=== PATIENT | female | born 1955 | race Caucasian/White ===

== ENCOUNTER 2019-04-28 15:41 | Outpatient (CLI) | payer OTHER, SELFPAY ==
--- NOTE | ~2019-04-28 | MM_ITS ---
EXAMINATION: MM screening farida BI w rhonda HISTORY: Screening mammogram TECHNIQUE: Craniocaudal and mediolateral oblique 3-D tomosynthesis images were obtained and synthetic 2-D images were generated. CAD analysis was submitted and interpreted. COMPARISON: 04/25/2018, 04/17/2017, 10/31/2015 bilateral digital screening mammogram examinations BREAST PARENCHYMAL COMPOSITION: The breasts are almost entirely fatty. FINDINGS: Small stable bilateral intramammary lymph nodes are again noted. There is no evidence of handy spicious mass, calcification, or architectural distortion to suggest malignancy in either breast. The re has been no suspicious interval change. IMPRESSION: 1. No mammographic evidence of malignancy. 2. Recommend routine screening mammography in one year. BI-RADS Category 2: Benign finding(s). Reviewed, dictated and finalized at location A. UCT TECHNICIAN
== END 2019-04-28 15:42 | disposition home or self-care (01) ==
LOC: ANHIMG 15:43
PROVIDERS: PCP Family Medicine Adolescent Medicine; Visit Provider Family Medicine Adolescent Medicine
DX: Z12.31 Encounter for screening mammogram for malignant neoplasm of breast (principal)
CPT/HCPCS: 77063; 77067

== ENCOUNTER 2019-05-01 08:33 | Emergency (ER) | payer OTHER, SELFPAY ==
--- NOTE | ~2019-05-01 | XR_ITS ---
EXAMINATION: XR chest 2V DATE: 05/01/2019 09:04 INDICATION: Left upper chest pain. Dyspnea with exertion. TECHNIQUE: PA and lateral views of the chest were obtained. COMPARISON: Chest radiograph dated 11/11/16 FINDINGS: The lungs are now clear with no focal airspace opacities, pulmonary edema, pleural effusion or pneumo thorax. The cardiomediastinal silhouette is normal. Mild thoracolumbar levocurvature with mild to mod erate spondylosis. IMPRESSION: 1. No acute cardiopulmonary disease. Reviewed, dictated and finalized at location A. RVISOR LANDSCAPE
[2019-05-01 08:36] VITALS: BP 167/90; PULSE 90; RESP 17; TEMP 36.6; O2SAT 99
--- NOTE | 2019-05-01 08:41 | ECG_ITS ---
Measurements Intervals Gardner Rate: 66 P: 48 MT: 179 QRS: -6 QRSD: 104 T: 27 QT: 415 QTc: 435 Interpretive Statements SINUS RHYTHM BASELINE ARTIFACT- I, III, AVR, AVL, AVF NORMAL ECG Electronically Signed On 05-01-2019 10:14:08 ELECTRONIC SCIENCE TEACHER by Joe Roberto D.O.
[2019-05-01] MEDS: ASPIRIN 81 MG CHEWABLE TABLET 324 MG PO (08:47)
[2019-05-01 08:52] VITALS: PULSE 82
[2019-05-01 08:52] LABS: Basophils Percent Auto 0.8 % (0.2-1.2); Eosinophils Absolute Auto 0.1 K/mm3 (0-0.3); Eosinophils Percent Auto 1.9 % (0-4.4); Hemoglobin 14.4 g/dL (12.0-15.0); Immature Granulocyte Absolute 0.02 K/mm3 (0.00-0.031); Immature Granulocyte Percent A 0.4 % (0-0.5); Lymphocytes Absolute Auto 1.77 K/mm3 (0.9-3.2); Lymphocytes Percent Auto 33.5 % (18.3-44.2); Mean Corpuscular Hemoglobin 27.6 pg (26-34); Mean Corpuscular Volume 86.2 fl (80-100); Mean Platelet Volume 9.8 fl (7.4-10.4); Monocytes Absolute Auto 0.4 K/mm3 (0.1-0.6); Monocytes Percent Auto 7.6 % (2.6-8.5); Neutrophils Percent Auto 55.8 % (45.5-73.1); Platelet Count Result 170 k/mm3 (150-375); Red Blood Count 5.22 M/mm3 (4.2-5.4); Red Cell Distribution Width 13.3 % (11.5-14.5); White Blood Count 5.3 K/mm3 (4.5-10.0)
[2019-05-01 08:53] VITALS: BP 156/67; PULSE 80; RESP 18; O2SAT 98
[2019-05-01 09:01] LABS: Blood Urea Nitrogen 15 mg/dL (7-17); Carbon Dioxide 22 mmol/L (22-30); Chloride 102 mmol/L (98-107); Estimated CRCL calculation 107 ml/min; Estimated Glomerular Filt Rate > 60; Glucose 336 mg/dL (65-105); Potassium 4.3 mmol/L (3.4-5.0); Sodium 138 mmol/L (137-145)
--- NOTE | 2019-05-01 09:12 | ED.CHESTPAIN ---
HPI - Chest Pain General Chief Complaint: Chest Pain Stated Complaint: CP Time Seen by Provider: 05/01/19 08:34 Source: patient and RN notes reviewed Mode of arrival: ambulatory Limitations: no limitations History of Present Illness HPI narrative: Pt is a 64 y/o female presenting to the ED c/o CP. Pt reports she started experiencing lt sided CP for a few weeks described as pressure. Pt also reports SOB with exertion, lt breast pain, and lt thigh pain described as cramping, but denies cough, congestion, or fever. Pt states she has made an appointment with her physician about her CP tomorrow but decided to come in after experiencing such SOB with exertion after taking a shower earlier today. Pt states she has a Hx of uncontrolled DM along with peripheral neuropathy that usually causes pain on her RLE. Pt states she is regularly taking Lisinopril and is also taking Estradiol but has recently cut back on it due to concern for breast cancer. Pertinent past history: other (DM; Peripheral neuropathy) Pain location: left chest Quality: other (Pressure) Associated symptoms: other (SOB with exertion; lt breast pain; lt thigh pain) Related Data Home Medications Medication Instructions Recorded Confirmed cetirizine mg 05/01/19 diclofenac sodium PO 05/01/19 estradiol mg 05/01/19 gabapentin 05/01/19 glimepiride mg 05/01/19 lisinopril 05/01/19 simvastatin mg 05/01/19 Allergies Allergy/AdvReac Type Severity Reaction Status Date / Time Penicillins Allergy Unknown Unknown Verified 05/01/19 08:48 Review of Systems Review of Systems: All systems reviewed & are unremarkable except as noted in HPI and below Constitutional: Constitutional: Denies fever(s) ENT: Denies nasal congestion Cardiovascular: Cardiovascular: Reports chest pain (Lt sided) Respiratory: Respiratory: Denies cough and Reports dyspnea on exertion Musculoskeletal: Musculoskeletal: Reports other (Lt thigh pain) Integumentary/Breasts: Skin/Breast: Reports breast pain (Lt) [facility] Past Medical History Medical History Asthma Diabetes mellitus Type II History of renal dialysis HTN (hypertension) IBS (irritable bowel syndrome) Kidney stone Pancreatitis Peripheral neuropathy UTI (urinary tract infection) Surgical History Surgical History H/O tubal ligation H/O: hysterectomy History of genitourinary surgery Bladder surgery History of musculoskeletal system surgery Rt heel surgery Family History Family History Mother Family history of malignant neoplasm Sibling Family history of malignant neoplasm Father Family history of diabetes mellitus in first degree relative Family history of heart disease in male family member before age 55 Social History Social History Smoking status: Never smoker Alcohol intake: current Exam Const: General: healthy appearing, no acute distress and alert Nutritional Appearance: obese HENMT: Mouth: Yes lip normal Eyes: Conjunctivae: conjunctivae normal Resp: Effort & Inspection: normal respiratory effort Auscultation: clear to auscultation bilaterally Cardio: Rate: regular rate Rhythm: regular rhythm Back/Spine/Pelvis: Other: Full ROM Skin: General skin exam: normal color Other: Warm; Dry Neuro: General: patient oriented x3 Speech: normal speech Extrem: General: edema (Trace bilateral ankle) Psych: Mental Status: mental status grossly normal Affect: normal affect Course Vital Signs Vital signs: Vital Signs Temperature 36.6 C 05/01/19 08:36 Pulse Rate 90 05/01/19 08:36 Respiratory Rate 17 05/01/19 08:36 Blood Pressure 167/90 H 05/01/19 08:36 Pulse Oximetry 99 05/01/19 08:36 Temperature 36.6 C 05/01/19 08:36 Pulse Rate 58 L 05/01/19 11:44 Respiratory Rate 12 05/01/19 11:44 Blood Press
[2019-05-01 09:13] LABS: Troponin I < 0.012 ng/mL (0.000-0.034)
[2019-05-01] MEDS: SODIUM CHLORIDE 0.9% IV 1,000 ML 999 ML IV CONT (09:30)
[2019-05-01 09:52] LABS: Partial Thromboplastin Time 23.7 SECONDS (22.3-36.8)
[2019-05-01 09:59] VITALS: BP 134/71; PULSE 67; RESP 14; O2SAT 98
--- NOTE | 2019-05-01 10:17 | ECG_ITS ---
Measurements Intervals Sherrill Rate: 79 P: 47 HI: 154 QRS: 30 QRSD: 113 T: 26 QT: 393 QTc: 451 Interpretive Statements SINUS RHYTHM INTRAVENTRICULAR CONDUCTION DELAY BORDERLINE ST-T WAVE ABNORMALITY- INFERIOR LEADS BASELINE ARTIFACT- I, II, III, AVR, AVL, V1-V2 BORDERLINE ECG Electronically Signed On 05-01-2019 15:18:07 WATERSHED PROGRAM MANAGER by Joe Roberto D.O.
[2019-05-01 10:18] VITALS: BP 152/62; PULSE 68; RESP 14; O2SAT 99
[2019-05-01 11:44] VITALS: BP 152/62; PULSE 58; RESP 12; O2SAT 100
== END 2019-05-01 11:45 | disposition home or self-care (01) ==
PROVIDERS: Emergency Provider Emergency Medicine; PCP Family Medicine Adolescent Medicine
DX: E11.65 Type 2 diabetes mellitus with hyperglycemia (principal); R07.9 Chest pain, unspecified; J45.909 Unspecified asthma, uncomplicated; I10 Essential (primary) hypertension; K58.9 Irritable bowel syndrome, unspecified; Z87.442 Personal history of urinary calculi; Z87.440 Personal history of urinary (tract) infections; E11.42 Type 2 diabetes mellitus with diabetic polyneuropathy; Z79.84 Long term (current) use of oral hypoglycemic drugs; I45.9 Conduction disorder, unspecified; R94.31 Abnormal electrocardiogram [ECG] [EKG]
CPT/HCPCS: 36415; 71046; 80048; 84484; 85025; 85610; 85730; 93005; 96360; 99284; A9270; J7030

== ENCOUNTER 2019-05-07 11:15 | Emergency (ER) | payer OTHER, SELFPAY ==
--- NOTE | ~2019-05-07 | CT_ITS ---
EXAMINATION: CT abdomen pelvis wo con EXAM DATE: 05/07/2019 12:31 INDICATION: Left flank pain. History of KS and pancreatitis. Nausea. TECHNIQUE: Spiral CT of the abdomen and pelvis was performed without contrast. Axial, coronal and s agittal images were reviewed. The dose-length product (DLP) for this examination was 1564.54 mGy-cm. The exposure was tailored according to patient size (auto mA exposure control), and iterative recon struction (ASIR) was used as additional dose reduction technique. There is no prior study for compar taya. FINDINGS: The liver, spleen, adrenal glands and pancreas are unremarkable. Gallbladder is unremarkab le. No biliary obstruction. There is a left renal pelvic stone measuring 1.4 cm, no hydronephrosis but moderate left perinephric fat stranding. There is additional 3 mm right superior calyceal stone. Punctate right nephrolithiasis. The uterus is not identified and has likely been surgically resected . The bladder is unremarkable. There is no retroperitoneal or pelvic lymphadenopathy. There is mi ld scattered arteriosclerotic disease. The appendix is normal. The stomach and small bowel are unremarkable. There is expected amount of c olonic stool. No free intraperitoneal gas. The heart is normal in size. There are no pericardial or pleural effusions. The lung bases are unremarkable. There are no osteoblastic or osteolytic les ions identified. Old right lower rib fractures laterally. IMPRESSION: 1. Left renal pelvic 14 mm stone with moderate perinephric inflammation. No hydronephrosis at presen t. 2. Small left, punctate right nephrolithiasis. Reviewed, dictated and finalized at location A. SSMENT EXPERT IMPRESSION: 1. Left renal pelvic 14 mm stone with moderate perinephric inflammation. No hy dronephrosis at present. 2. Small left, punctate right nephrolithiasis.
[2019-05-07 11:43] VITALS: BP 167/79; PULSE 94; RESP 16; TEMP 37; O2SAT 97
--- NOTE | 2019-05-07 11:50 | ED.ABDPAIN ---
HPI - Abdominal Pain General Chief Complaint: Abdominal Pain Stated Complaint: kidney stones or pancreatitis Time Seen by Provider: 05/07/19 11:50 Source: patient and RN notes reviewed Mode of arrival: ambulatory Limitations: no limitations History of Present Illness HPI narrative: A 64 y/o female presents to the ED with intermittent LLQ ABD pain for the past 12 hours. She states that she woke up with LLQ ABD pain that radiates into her lt flank and lower back at 12 AM this morning. She reports associated N/V. She notes that she took 2 tramadol at 4 AM which helped to alleviate her pain. She also notes that she called her PCP's office who told her to come to the ED to get a CT to make sure that it isn't her pancreatitis flaring up again. She states that she also currently has lt kidney stones. She denies any diarrhea, fevers, chills, dysuria, hematuria, or urinary frequency. MD elicited complaint: abdominal pain Pertinent past history: diverticulitis and kidney stones Onset (ago): hour(s) (12) Pain Consistency: intermittent Location: LLQ Radiation: L flank and back (lower) Relieving factors: medication (Tramadol) Associated symptoms: nausea and vomiting Related Data Home Medications Medication Instructions Recorded Confirmed cetirizine mg 05/01/19 diclofenac sodium PO 05/01/19 estradiol mg 05/01/19 gabapentin 05/01/19 glimepiride mg 05/01/19 lisinopril 05/01/19 simvastatin mg 05/01/19 insulin glargine [Basaglar KwikPen 10 unit SUBCUT DAILY 05/07/19 05/07/19 U-100 Insulin] Allergies Allergy/AdvReac Type Severity Reaction Status Date / Time Penicillins Allergy Unknown Unknown Verified 05/07/19 11:45 Review of Systems Review of Systems: All systems reviewed & are unremarkable except as noted in HPI and below Constitutional: Constitutional: Denies chills and Denies fever(s) Gastrointestinal: Gastrointestinal: Reports abdominal pain (LLQ), Denies diarrhea, Reports nausea and Reports vomiting Genitourinary: Genitourinary: Denies hematuria, Denies nocturia, Denies dysuria and Reports flank pain (lt radiated from ABD pain) Musculoskeletal: Musculoskeletal: Reports back pain (lower - radiated from ABD pain) [facility] Past Medical History Medical History Asthma Diabetes mellitus Type II Diverticulitis History of renal dialysis HTN (hypertension) Hx of rotator cuff tear AMOS. IBS (irritable bowel syndrome) Kidney stone OA (osteoarthritis) Pancreatitis Peripheral neuropathy UTI (urinary tract infection) Surgical History Surgical History H/O tubal ligation H/O: hysterectomy History of bladder suspension procedure History of cystoscopy History of genitourinary surgery Bladder surgery History of lithotripsy History of musculoskeletal system surgery Rt heel surgery History of tonsillectomy Hx of rotator cuff surgery AMOS. S/P ureteral stent placement Family History Family History Mother Family history of malignant neoplasm Sibling Family history of malignant neoplasm Father Family history of diabetes mellitus in first degree relative Family history of heart disease in male family member before age 55 Social History Social History Smoking status: Never smoker Alcohol intake: current Exam Const: General: cooperative, no acute distress and alert Nutritional Appearance: obese Orientation/consciousness: patient oriented x3 Limitations: no limitations HENMT: Mouth: Yes lip normal and Yes moist mucous membranes Resp: Effort & Inspection: normal respiratory effort Auscultation: clear to auscultation bilaterally Cardio: Rate: regular rate Rhythm: regular rhythm GI: GI Palp: Yes Soft to palpation and Yes Tenderness to palpation present (GI) (Epigastric and LUQ
[2019-05-07 12:11] LABS: Basophils Percent Auto 0.2 % (0.2-1.2); Eosinophils Percent Auto 0.1 % (0-4.4); Hemoglobin 13.9 g/dL (12.0-15.0); Immature Granulocyte Absolute 0.02 K/mm3 (0.00-0.031); Immature Granulocyte Percent A 0.2 % (0-0.5); Lymphocytes Absolute Auto 1.45 K/mm3 (0.9-3.2); Lymphocytes Percent Auto 17.9 % (18.3-44.2); Mean Corpuscular HGB Conc 32.3 g/dl (32-36); Mean Corpuscular Hemoglobin 27.8 pg (26-34); Mean Platelet Volume 9.4 fl (7.4-10.4); Monocytes Absolute Auto 0.6 K/mm3 (0.1-0.6); Monocytes Percent Auto 7.5 % (2.6-8.5); Neutrophils Percent Auto 74.1 % (45.5-73.1); Platelet Count Result 161 k/mm3 (150-375); Red Cell Distribution Width 13.2 % (11.5-14.5); White Blood Count 8.1 K/mm3 (4.5-10.0)
[2019-05-07] MEDS: ONDANSETRON INJ 4 MG/2 ML VIAL IV PUSH (12:11)
[2019-05-07 12:25] LABS: Alanine Aminotransferase 24 U/L (4-35); Albumin Level 4.2 g/dL (3.5-5.1); Alkaline Phosphatase 80 U/L (38-126); Aspartate Amino Transferase 24 U/L (14-36); Bilirubin,Total 0.5 mg/dL (0.2-1.3); Blood Urea Nitrogen 22 mg/dL (7-17); Calcium 9.1 mg/dL (8.4-10.2); Carbon Dioxide 28 mmol/L (22-30); Chloride 101 mmol/L (98-107); Estimated CRCL calculation 106 ml/min; Estimated Glomerular Filt Rate > 60; Glucose 255 mg/dL (65-105); Lipase 326 U/L (23-300); Potassium 4.3 mmol/L (3.4-5.0); Sodium 138 mmol/L (137-145)
[2019-05-07 12:36] LABS: Add Urine Microscopic? YES; Appearance Urine Cloudy (Clear); Bacteria Urine 1+ /hpf; Bilirubin Urine Negative (Negative); Blood Urine 2+ (Negative); Color Urine Yellow (Yellow); Glucose Urine UA 3+ mg/dL (Negative); Ketones Urine Negative (Negative); Leukocyte Esterase Ur 3+ LEU/UL (Negative); Mucus Urine Rare /lpf; Nitrate Urine Negative (Negative); Protein Urine 2+ mg/dL (Negative); RBC Urine 21-50 /hpf (0-2); Specific Grav Ur 1.013 (1.001-1.035); Squamous Epithelial Cell Urine Rare /hpf (Few); Urobilinogen Urine Negative mg/dL (<2.0); WBC Urine >75 /hpf
--- NOTE | 2019-05-12 07:52 | PC.NURSE ---
LATE ENTRY This note is being entered to document information to the patient's record. The following information was omitted on [05/07/19]. rocephin infused at 1456
== END 2019-05-07 12:26 | disposition home or self-care (01) ==
PROVIDERS: Emergency Provider Emergency Medicine; PCP Family Medicine Adolescent Medicine
DX: N20.0 Calculus of kidney (principal); N10 Acute pyelonephritis; Z87.442 Personal history of urinary calculi; E11.42 Type 2 diabetes mellitus with diabetic polyneuropathy; I10 Essential (primary) hypertension; K58.9 Irritable bowel syndrome, unspecified; M19.90 Unspecified osteoarthritis, unspecified site; J45.909 Unspecified asthma, uncomplicated; Z79.4 Long term (current) use of insulin
CPT/HCPCS: 36415; 74176; 80053; 81001; 83690; 85025; 87077; 87086; 87088; 87186; 96365; 96375; 99284; J0696; J2405

== ENCOUNTER 2019-05-14 15:36 | Outpatient (CLI) | payer OTHER, SELFPAY ==
--- NOTE | ~2019-05-14 | XR_ITS ---
EXAMINATION: XR abdomen/kub 1V EXAM DATE: 05/14/2019 16:00 INDICATION: Kidney stone. Left flank pain. TECHNIQUE: Frontal projection of the upper abdomen, frontal projection lower abdomen/pelvis for inter pretation. Comparison is made to prior examination from 02/19/2019. FINDINGS: There is stool overlying both renal contours. Probable identification of large left renal pelvic stone. No small bowel obstruction. There is no organomegaly. There are mild bony degenerativ e changes. IMPRESSION: Left nephrolithiasis. Reviewed, dictated and finalized at location B. ER LABOR IMPRESSION: Left nephrolithiasis.
== END 2019-05-14 15:37 | disposition home or self-care (01) ==
PROVIDERS: PCP Family Medicine Adolescent Medicine; Visit Provider Urology
DX: N20.0 Calculus of kidney (principal)
CPT/HCPCS: 74018

== ENCOUNTER 2019-05-19 11:08 | Outpatient (CLI) | payer OTHER, SELFPAY ==
[2019-05-19 11:43] LABS: Prothrombin Time 13.1 Seconds (11.1-14.7)
[2019-05-19 11:44] LABS: Partial Thromboplastin Time 25.4 SECONDS (22.3-36.8)
== END 2019-05-19 11:09 | disposition home or self-care (01) ==
PROVIDERS: PCP Family Medicine Adolescent Medicine; Visit Provider Urology
DX: N20.0 Calculus of kidney (principal)
CPT/HCPCS: 36415; 85610; 85730

== ENCOUNTER 2019-05-22 01:47 | Day surgery (SDC) | payer OTHER, SELFPAY ==
[2019-05-19 08:44] VITALS: BMI 42.9
[2019-05-22] VITALS (9 sets, daily range): BP systolic 107–157; BP diastolic 57–90; PULSE 61–81; RESP 14–20; TEMP 35.9–37.2; O2SAT 96–100
--- NOTE | ~2019-05-22 | XR_ITS ---
EXAMINATION: XR abdomen/kub 1V DATE: 05/22/2019 07:36 INDICATION: Left renal stone. TECHNIQUE: A supine view of the abdomen on 2 radiographs was obtained. COMPARISON: Abdomen radiographs 05/14/2019, CT abdomen and pelvis 05/07/2019 FINDINGS: There are no dilated loops of bowel. There is an ill-defined 14 mm stone in left renal pelv is. There are approximately 3 stones in left kidney upper pole measuring up to 2 mm. IMPRESSION: 1. Left kidney stones. Reviewed, dictated and finalized at location A. HYSICAL PROSPECTING SURVEYOR IMPRESSION: 1. Left kidney stones.
[2019-05-22] MEDS: LACTATED RINGERS 1,000 ML 30 ML IV CONT ×2 (08:06→11:00)
[2019-05-22 08:11] LABS: Glucose Point of Care 216 (65-105)
--- NOTE | 2019-05-22 08:24 | WPDHPUPDATE1 ---
History and Physical Update Update Date/Time: 05/22/19 08:24 History and Physical has been reviewed, including an updated exam of the patient. There are NO changes in the patient's condition. Risks, benefits, and alternatives have been discussed and questions answered. Patient agrees to proceed with procedure.
--- NOTE | 2019-05-22 09:05 | WPDANESEPPF ---
Anes - Initial Pre Proc Eval Procedure: Operation Date: 05/22/19 09:30 Proposed Procedures p Left Renal Extracorporeal Shock Wave Lithotripsy, Possible Retrograde Pyelogram - Romain Graham MD Date/Time: 05/22/19 09:05 Surgeon: Romain Graham MD Pre Op Diagnosis: Left Renal Stone Patient Data Age: 64 Gender: F Height: 1.65 m Weight: 115.2 kg Last Vital Signs Temp 37.2 C 05/22/19 08:12 Pulse 65 05/22/19 08:12 Resp 20 05/22/19 08:12 BP 128/57 L 05/22/19 08:12 Pulse Ox 97 05/22/19 08:12 Allergies Allergy/AdvReac Type Severity Reaction Status Date / Time Penicillins Allergy Unknown Unknown Verified 05/19/19 08:45 reaction Home Medications Medication Instructions Recorded Confirmed Type cetirizine 10 mg PO DAILY 05/01/19 05/22/19 History diclofenac sodium 75 mg PO DAILY 05/01/19 05/22/19 History gabapentin 600 mg PO DAILY 05/01/19 05/22/19 History glimepiride 2 mg PO DAILY 05/01/19 05/22/19 History lisinopril 20 mg PO DAILY 05/01/19 05/22/19 History simvastatin 20 mg PO DAILY 05/01/19 05/22/19 History furosemide 20 mg PO EVERY OTHER DAY 05/19/19 05/22/19 History insulin glargine [Basaglar KwikPen 15 unit SUBCUT HS 05/19/19 05/22/19 History U-100 Insulin] tramadol 50 mg PO DIRECTED PRN 05/19/19 05/22/19 History Laboratory Tests 05/22/19 08:08 POC Capillary Glucose 216 mg/dl H mg/dl (65-105) Patient hx anesthesia problems: none Family hx anesthesia problems: none PMFSH Past Medical History Medical History (Updated 05/22/19 @ 09:05 by Jadon Melara DO) Diabetes mellitus Type II Diverticulitis HTN (hypertension) Hx of rotator cuff tear AMOS. IBS (irritable bowel syndrome) Kidney stone OA (osteoarthritis) Pancreatitis Peripheral neuropathy UTI (urinary tract infection) Surgical History Surgical History H/O tubal ligation H/O: hysterectomy History of bladder suspension procedure History of cystoscopy History of genitourinary surgery Bladder surgery History of lithotripsy History of musculoskeletal system surgery Rt heel surgery History of tonsillectomy Hx of rotator cuff surgery AMOS. S/P ureteral stent placement Social History Social History Smoking status: Never smoker Alcohol intake: current Anes - Eval Final PreProcedure Day of Procedure 05/22/19 09:05 Patient weight: morbidly obese Heart: regular rate and rhythm Lungs: clear to auscultation and normal air movement Airway: Mallampati scale class II Neurological: alert and oriented Last oral intake: >/= 8 hours ASA classification: III Emergent: no Anesthetic plan: proceed Anesthesia type and monitoring: general LMA and standard monitoring Informed Consent: The patient's anesthetic plan and its attendant risks and benefits were discussed with the patient/family/POA. Questions were solicited and answers provided to the satisfaction of the patient/family/POA.
--- NOTE | 2019-05-22 09:41 | P.PNAN_ITS ---
Anes - Initial Pre Proc Eval Procedure: Operation Date: 05/22/19 09:30 Proposed Procedures p Left Renal Extracorporeal Shock Wave Lithotripsy, Possible Retrograde Pyelogram - Romain Graham MD Date/Time: 05/22/19 09:41 Surgeon: Romain Graham MD Pre Op Diagnosis: Left Renal Stone Patient Data Age: 64 Gender: F Height: 5 ft 5 in Weight: 115.2 kg Last Vital Signs Temp 99.0 F 05/22/19 08:12 Pulse 65 05/22/19 08:12 Resp 20 05/22/19 08:12 BP 128/57 L 05/22/19 08:12 Pulse Ox 97 05/22/19 08:12 Allergies Allergy/AdvReac Type Severity Reaction Status Date / Time Penicillins Allergy Unknown Unknown Verified 05/19/19 08:45 reaction Home Medications Medication Instructions Recorded Confirmed Type cetirizine 10 mg PO DAILY 05/01/19 05/22/19 History diclofenac sodium 75 mg PO DAILY 05/01/19 05/22/19 History gabapentin 600 mg PO DAILY 05/01/19 05/22/19 History glimepiride 2 mg PO DAILY 05/01/19 05/22/19 History lisinopril 20 mg PO DAILY 05/01/19 05/22/19 History simvastatin 20 mg PO DAILY 05/01/19 05/22/19 History furosemide 20 mg PO EVERY OTHER DAY 05/19/19 05/22/19 History insulin glargine [Basaglar KwikPen 15 unit SUBCUT HS 05/19/19 05/22/19 History U-100 Insulin] tramadol 50 mg PO DIRECTED PRN 05/19/19 05/22/19 History Laboratory Tests 05/22/19 08:08 POC Capillary Glucose 216 mg/dl H mg/dl (65-105) Patient hx anesthesia problems: none Family hx anesthesia problems: none PMFSH Past Medical History Medical History (Updated 05/22/19 @ 09:05 by Jadon Melara DO) Diabetes mellitus Type II Diverticulitis HTN (hypertension) Hx of rotator cuff tear AMOS. IBS (irritable bowel syndrome) Kidney stone OA (osteoarthritis) Pancreatitis Peripheral neuropathy UTI (urinary tract infection) Surgical History Surgical History H/O tubal ligation H/O: hysterectomy History of bladder suspension procedure History of cystoscopy History of genitourinary surgery Bladder surgery History of lithotripsy History of musculoskeletal system surgery Rt heel surgery History of tonsillectomy Hx of rotator cuff surgery AMOS. S/P ureteral stent placement Social History Social History Smoking status: Never smoker Alcohol intake: current Anes - Eval Final PreProcedure Day of Procedure 05/22/19 09:41 Patient weight: morbidly obese Heart: regular rate and rhythm Lungs: clear to auscultation Airway: Mallampati scale class III Neurological: alert and oriented Last oral intake: >/= 8 hours ASA classification: IV Emergent: no Anesthetic plan: proceed Anesthesia type and monitoring: general LMA (ETT if needed) and standard mo nitoring Informed Consent: The patient's anesthetic plan and its attendant risks and benefits were discussed with the patient/family/POA. Questions were solicited and answers provided to the satisfaction of the patient/family/POA.
--- NOTE | 2019-05-22 09:42 | SUR.PREOP ---
REVIEWED PT BLOOD SUGAR OF [address] SANDOVAL. HE STATED NO ORDERS AT THIS TIME.
[2019-05-22] MEDS: levoFLOXacin 500 MG/D5W 100 ML 500 MG/100 ML BAG 100 MG IVPB (09:55)
--- NOTE | 2019-05-22 10:49 | PM.PROC ---
Procedure Note - Detailed Date of procedure: 05/22/19 Pre-op diagnosis: Left Renal Stone Post-op diagnosis: same Procedure performed: Lithotripsy of left renal calculus 14 mm Description of procedure: Patient was taken to the operative suite and correctly identified. Once general anesthesia was obtained the stone was localized in both planes. Two thousand five hundred shocks were given to the stone. Patient tolerated the procedure well without any complications and was taken recovery room stable condition. She is to strain her urine will follow up in 10-14 days with a KUB. Anesthesia: GLMA Surgeon: Romain Graham MD Drains: No Packing: No Pathology: none sent Complications: No immediate complications Condition: stable Disposition: PACU
[2019-05-22] MEDS: ONDANSETRON INJ 4 MG/2 ML VIAL IV PUSH (11:22)
--- NOTE | 2019-05-22 11:41 | SUR.PHASEI ---
blood sugar 177
[2019-05-22 11:45] LABS: Glucose Point of Care 177 (65-105)
== END 2019-05-22 12:35 | disposition home or self-care (01) ==
PROVIDERS: PCP Family Medicine Adolescent Medicine; Visit Provider Urology
PROC: (CPT 50590; principal; 2019-05-22 09:30)
DX: N20.0 Calculus of kidney (principal); I10 Essential (primary) hypertension; E11.40 Type 2 diabetes mellitus with diabetic neuropathy, unspecified; M19.90 Unspecified osteoarthritis, unspecified site; K58.9 Irritable bowel syndrome, unspecified; Z79.4 Long term (current) use of insulin; E66.01 Morbid (severe) obesity due to excess calories; Z68.41 Body mass index [BMI] 40.0-44.9, adult
CPT/HCPCS: 50590; 74018; J0131; J1100; J1956; J2250; J2405; J2704; J3010; J7120

== ENCOUNTER 2019-05-26 11:07 | Outpatient (CLI) | payer OTHER, SELFPAY ==
--- NOTE | ~2019-05-26 | XR_ITS ---
EXAMINATION: XR abdomen/kub 1V DATE: 05/26/2019 11:23 INDICATION: Calculus of left kidney. TECHNIQUE: A supine view of the abdomen on 2 radiographs was obtained. COMPARISON: CT abdomen and pelvis 05/07/2019, abdomen radiographs 12/03/2018, 05/22/2019 FINDINGS: There are no dilated loops of bowel. The kidneys are obscured by bowel. There is a 4 mm sto ne in left kidney upper pole. There are 2 mm and 4 mm stones in distal left ureter. IMPRESSION: 1. Stones in left kidney and distal left ureter. Reviewed, dictated and finalized at location A.
== END 2019-05-26 11:08 | disposition home or self-care (01) ==
PROVIDERS: PCP Family Medicine Adolescent Medicine; Visit Provider Urology
DX: N20.2 Calculus of kidney with calculus of ureter (principal)
CPT/HCPCS: 74018

== ENCOUNTER 2019-06-09 15:33 | Outpatient (CLI) | payer OTHER, SELFPAY ==
--- NOTE | ~2019-06-09 | XR_ITS ---
XR abdomen/kub 1V 06/09/2019 16:01 Indication: Left renal stone Procedure: Supine view of the abdomen Comparison: Comparison to multiple prior studies sequentially, with oldest reviewed study dated 07/2018 Findings: There are is a left renal stone at the upper pole. No definite stones are identified in the expected course of the ureters. Bowel gas pattern is nonobstructive.. No significant bone or joint a bnormality. Impression: 1: Left nephrolithiasis. Reviewed, dictated and finalized at location A. Impression: 1: Left nephrolithiasis.
--- NOTE | ~2019-06-09 | CT_ITS ---
EXAMINATION: CT abdomen pelvis wo con DATE: 06/09/2019 16:02 INDICATION: Renal stonesKUB Automated exposure control and iterative reconstruction technique were em ployed. COMPARISON: CT dated 05/07/2019 FINDINGS: Lung bases are unremarkable. Heart size normal. No significant pleural or pericardial effus ion. No significant vascular abnormality. No lymphadenopathy. There is a left UVJ stone measuring 5 x 3 mm. There are left renal stones, largest measuring 4 mm. There is a small punctate nonobstructing right renal stone measuring 1-2 mm. Small subcentimeter hypodensity right hepatic lobe, most likely benign cyst or hemangioma. The spleen , pancreas, adrenal glands are unremarkable. Nonobstructive bowel gas pattern. Colonic diverticulosis without evidence for diverticulitis. Moderate lumbar spondylosis most advanced at L3-4 and L5-S1. Mi ld wedge-shaped appearance to T11, likely chronic. There are healed right rib fractures. IMPRESSION: 1. 5 mm left UVJ stone. No significant hydronephrosis. 2: Nonobstructing bilateral nephrolithiasis. Reviewed, dictated and finalized at location A.
== END 2019-06-09 15:34 | disposition home or self-care (01) ==
LOC: ANHIMG 15:38
PROVIDERS: PCP Family Medicine Adolescent Medicine; Visit Provider Urology
DX: N20.0 Calculus of kidney (principal)
CPT/HCPCS: 74018; 74176

== ENCOUNTER 2019-06-25 15:36 | Outpatient (CLI) | payer OTHER, SELFPAY ==
--- NOTE | ~2019-06-25 | XR_ITS ---
XR abdomen/kub 1V 06/25/2019 15:52 Indication: Left renal stone Procedure: KUB Comparison: 06/09/2019 Findings: Kidneys are obscured by bowel content. No nephrolithiasis identified. No calcifications are identified in the expected course of the ureters or bladder. Bowel gas pattern nonobstructive. Impression: 1: No nephrolithiasis identified, although evaluation limited by bowel content. Reviewed, dictated and finalized at location A. Impression: 1: No nephrolithiasis identified, although evaluation limited by bowel content.
== END 2019-06-25 15:37 | disposition home or self-care (01) ==
LOC: ANHIMG 15:42
PROVIDERS: PCP Family Medicine Adolescent Medicine; Visit Provider Urology
DX: N20.0 Calculus of kidney (principal)
CPT/HCPCS: 74018

== ENCOUNTER 2019-10-23 08:37 | Outpatient (CLI) | payer OTHER, SELFPAY ==
[2019-10-23 08:54] LABS: Hematocrit 44.6 % (37.0-47.0); Hemoglobin 15.1 g/dL (12.0-15.0)
[2019-10-23 09:09] LABS: Alanine Aminotransferase 23 U/L (4-35); Albumin Level 4.1 g/dL (3.5-5.1); Alkaline Phosphatase 105 U/L (38-126); Anion Gap 12.4 mmol/L (7-16); Aspartate Amino Transferase 18 U/L (14-36); Bilirubin,Total 0.6 mg/dL (0.2-1.3); Blood Urea Nitrogen 18 mg/dL (7-17); Calcium 9.4 mg/dL (8.4-10.2); Carbon Dioxide 29 mmol/L (22-30); Chloride 101 mmol/L (98-107); Cholesterol 190 mg/dL (0-200); Estimated Glomerular Filt Rate > 60; Glucose 219 mg/dL (65-105); HDL Direct 33 mg/dL; Potassium 4.4 mmol/L (3.4-5.0); Sodium 138 mmol/L (137-145); Triglycerides 260 mg/dL (<150)
[2019-10-23 09:19] LABS: LDL Cholesterol Direct 121 mg/dL
[2019-10-23 09:38] LABS: Hemoglobin A1C 9.6 % (<5.7)
== END 2019-10-23 08:38 | disposition home or self-care (01) ==
LOC: ANHLAB 08:38
PROVIDERS: PCP Family Medicine Adolescent Medicine; Visit Provider Family Medicine Adolescent Medicine
DX: E11.65 Type 2 diabetes mellitus with hyperglycemia (principal); I10 Essential (primary) hypertension; E78.00 Pure hypercholesterolemia, unspecified; R53.83 Other fatigue
CPT/HCPCS: 36415; 80053; 80061; 83036; 84443; 85014; 85018

== ENCOUNTER 2019-11-17 09:32 | Outpatient (CLI) | payer OTHER, SELFPAY ==
--- NOTE | 2019-11-17 | EST_ITS ---
Patient Info Name: Solitario Contreras Age: 64 years : 1955 Gender: Female Ht: 66 in Wt: 250 lbs BSA: 2.35 m2 HR: 72 bpm BP: 143 / 76 mmHg Technical Quality: Fair Exam Date: 11/17/2019 10:22 AM Exam Location: [facility] Patient Status: Outpatient Admit Date: 11/17/2019 Staff Ordering Physician: Mayur Maciel MD Admin Assistant: Kalen Greene RDCS Attending Provider: JOE LINO DO Referring Physician: Janell MACIEL; Exercise Technologist: Josette Singh RDCS Exercise Physician: Joe Lino DO Exam Type: CA stress echo Study Info Indications R07.89 - Other chest pain Treadmill exercise stress echocardiogram is performed. Summary 1. 1. Negative Jorge L exercise stress test for ischemic ST changes by ECG criteria. 2. 2. Reduced functional capacity, achieving 6 METs of workload. 3. 3. Baseline hypertension. 4. 4. Appropriate HR response to exercise. 5. 5. Appropriate HR recovery at 1 minute post exercise. 6. 6. Negative stress echocardiogram for ischemia by wall motion analysis. 7. 7. Patient informed of the above results. Stress Echo Findings Left Ventricle Appropriate increase in LV endocardial thickening with systole. Appropriate augmentation of contractility with systole. No wall motion abnormality. Left Ventricle Normal LV systolic function, no wall motion abnormality. Protocol: Jorge L Stress ECG Details Stage: REST Duration (min): 3 min : 30 sec Speed (mph): 0.0 Grade (%): 0 HR (bpm): 72 SBP (mmHg): 143 DBP (mmHg): 76 METS: --- Stage: REST Duration (min): 15 min : 13 sec Speed (mph): 0.0 Grade (%): 0 HR (bpm): 78 SBP (mmHg): 143 DBP (mmHg): 76 METS: --- Stage: STAGE 1 Duration (min): 1 min : 0 sec Speed (mph): 1.7 Grade (%): 10 HR (bpm): 116 SBP (mmHg): 143 DBP (mmHg): 76 METS: --- Stage: STAGE 1 Duration (min): 2 min : 0 sec Speed (mph): 1.7 Grade (%): 10 HR (bpm): 135 SBP (mmHg): 143 DBP (mmHg): 76 METS: --- Stage: STAGE 1 Duration (min): 3 min : 0 sec Speed (mph): 1.7 Grade (%): 10 HR (bpm): 139 SBP (mmHg): 207 DBP (mmHg): 85 METS: --- Stage: STAGE 2 Duration (min): 1 min : 0 sec Speed (mph): 2.5 Grade (%): 12 HR (bpm): 144 SBP (mmHg): 207 DBP (mmHg): 85 METS: --- Stage: STAGE 2 Duration (min): 1 min : 1 sec Speed (mph): 0.0 Grade (%): 0 HR (bpm): 144 SBP (mmHg): 207 DBP (mmHg): 85 METS: --- Stage: RECOVERY Duration (min): 0 min : 58 sec Speed (mph): 0.0 Grade (%): 0 HR (bpm): 107 SBP (mmHg): 207 DBP (mmHg): 85 METS: --- Stage: RECOVERY Duration (min): 1 min : 58 sec Speed (mph): 0.0 Grade (%): 0 HR (bpm): 78 SBP (mmHg): 207 DBP (mmHg): 85 METS: --- Stage: RECOVERY Duration (min): 2 min : 58 sec Speed (mph): 0.0 Grade (%): 0 HR (bpm): 80 SBP (mmHg): 170 DBP (mmHg): 77 METS: ---
== END 2019-11-17 09:33 | disposition home or self-care (01) ==
LOC: ANHCARD 09:34
PROVIDERS: PCP Family Medicine Adolescent Medicine; Visit Provider Family Medicine Adolescent Medicine
DX: R07.9 Chest pain, unspecified (principal); R06.09 Other forms of dyspnea; I10 Essential (primary) hypertension
CPT/HCPCS: 93351

== ENCOUNTER 2020-01-07 09:56 | Outpatient (CLI) | payer OTHER, SELFPAY ==
--- NOTE | ~2020-01-07 | XR_ITS ---
XR abdomen/kub 1V 01/07/2020 10:22 Indication: Low back pain Procedure: KUB Comparison: Comparison to multiple prior studies sequentially, with oldest reviewed study dated 08/2019. Findings: Bowel gas pattern is nonobstructive. Moderate colonic fecal loading. No abnormal calcificat ions. Pedicles intact. No renal/ureteral stones. Bowel gas pattern nonobstructive. No renal/ureteral stones identified. Impression: 1: No acute abdominal abnormality. Reviewed, dictated and finalized at location B. Impression: 1: No acute abdominal abnormality.
== END 2020-01-07 09:57 | disposition home or self-care (01) ==
LOC: ANHIMG 10:03
PROVIDERS: PCP Family Medicine Adolescent Medicine; Visit Provider Urology
DX: N20.0 Calculus of kidney (principal)
CPT/HCPCS: 74018

== ENCOUNTER 2020-01-20 17:47 | Outpatient (CLI) | payer OTHER, SELFPAY ==
--- NOTE | ~2020-01-20 | XR_ITS ---
EXAMINATION: XR abdomen/kub 1V DATE: 01/20/2020 18:15 INDICATION: Left flank pain. TECHNIQUE: A supine view of the abdomen on 2 radiographs was obtained. COMPARISON: CT abdomen and pelvis 01/20/20 FINDINGS: There are no dilated loops of bowel. The kidneys are obscured by bowel. IMPRESSION: 1. No visible urolithiasis. Reviewed, dictated and finalized at location A. H ARNP IMPRESSION: 1. No visible urolithiasis.
--- NOTE | ~2020-01-20 | CT_ITS ---
EXAMINATION: CT abdomen pelvis wo con DATE: 01/20/2020 18:09 INDICATION: Left flank pain. TECHNIQUE: Computed tomography (CT) of the abdomen and pelvis was performed without intravenous contr ast. Automated exposure control and iterative reconstruction technique were employed. The dose-length product was 1574.78 mGy-cm. COMPARISON: CT abdomen and pelvis 06/09/2019 FINDINGS: The visualized portions of the lung bases demonstrate mild atelectasis. No pleural effusion . The heart size is normal. No pericardial effusion. There is a 6 mm cyst in the liver. The gallbladd er, spleen, pancreas, and adrenal glands are normal. There is a 2 mm stone in right kidney. There is a 3 mm stone in left kidney. There are no dilated loops of bowel. The appendix is normal. There are n o pathologically enlarged lymph nodes. There is no free intraperitoneal fluid. There is a benign bone island in proximal right femur. There is mild thoracic spondylosis and moderate lumbar spondylosis. There is a benign bone island in T9 vertebral body. IMPRESSION: 1. Small bilateral nonobstructing kidney stones. Reviewed, dictated and finalized at location A. 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
== END 2020-01-20 17:48 | disposition home or self-care (01) ==
PROVIDERS: PCP Family Medicine Adolescent Medicine; Visit Provider Urology
DX: K58.9 Irritable bowel syndrome, unspecified (principal); N20.0 Calculus of kidney; Z87.442 Personal history of urinary calculi; K76.89 Other specified diseases of liver
CPT/HCPCS: 74018; 74176

== ENCOUNTER 2020-05-15 07:35 | Outpatient (CLI) | payer OTHER, SELFPAY ==
--- NOTE | ~2020-05-15 | XR_ITS ---
XR hip LT min 2V DATE: 05/15/2020 07:56 INDICATION: Left hip pain. No known injury. TECHNIQUE: AP, lateral and crosstable lateral views of left hip COMPARISON: None FINDINGS: No fracture or dislocation, avascular necrosis or bone destruction. Left hip joint space is well preserved. IMPRESSION: No significant abnormality Reviewed, dictated and finalized at location A. 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
== END 2020-05-15 07:36 | disposition home or self-care (01) ==
PROVIDERS: PCP Family Medicine Adolescent Medicine; Visit Provider Family Medicine Adolescent Medicine
DX: M25.552 Pain in left hip (principal)
CPT/HCPCS: 73502

== ENCOUNTER 2020-05-21 10:52 | Outpatient (CLI) | payer OTHER, SELFPAY ==
--- NOTE | ~2020-05-21 | MM_ITS ---
EXAMINATION: MM screening farida BI w rhonda HISTORY: Screening mammogram TECHNIQUE: Craniocaudal and mediolateral oblique 3-D tomosynthesis images were obtained and synthetic 2-D images were generated. CAD analysis was submitted and interpreted. COMPARISON: April 28, 2019, April 25, 2018, April 17, 2017, October 31, 2015 bilateral digital screening mammogram examinations BREAST PARENCHYMAL COMPOSITION: There are scattered areas of fibroglandular density. FINDINGS: Stable chronic low-density circumscribed benign-appearing opacities are noted bilaterally, measuring up to approximately 4 mm on the right and 7 mm maximal dimension on the left, not significa ntly changed since 10/31/2015. These are likely benign intramammary lymph nodes or other benign proces s such as fibroadenoma. There is no evidence of suspicious mass, calcification, or architectural dist ortion to suggest malignancy in either breast. There has been no suspicious interval change. IMPRESSION: 1. No mammographic evidence of malignancy. 2. Recommend routine screening mammography in one year. BI-RADS Category 2: Benign finding(s). Reviewed, dictated and finalized at location A. 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
== END 2020-05-21 10:53 | disposition home or self-care (01) ==
LOC: ANHIMG 10:54
PROVIDERS: PCP Family Medicine Adolescent Medicine; Visit Provider Family Medicine Adolescent Medicine
DX: Z12.31 Encounter for screening mammogram for malignant neoplasm of breast (principal)
CPT/HCPCS: 77063; 77067

== ENCOUNTER 2020-07-02 08:39 | Outpatient (CLI) | payer OTHER, SELFPAY ==
--- NOTE | ~2020-07-02 | MR_ITS ---
EXAMINATION: MR hip LT wo con DATE: 07/02/2020 10:08 INDICATION: Left hip and leg pain and severe weakness. TECHNIQUE: Magnetic resonance imaging (MRI) of the left hip was performed without intravenous contra st. Sequences included full-field axial PD-weighted FS FSE and T1-weighted FSE, coronal of the pelvis with PD-weighted FS FSE, small field of view of the left hip with axial PD-weighted FS FSE, sagitta l PD-weighted FS FSE and coronal PD weighted FS FSE. Additional radial T1-weighted FGR oriented ortho gonal to the acetabular rim were obtained for evaluation of the labrum. COMPARISON: None FINDINGS: Bones/labrum/cartilage: Alignment is normal. No fracture, avascular necrosis or pathologic marrow replacing process. Small l ow signal intensity bone island at the right femoral head. Labrum is normal. Mild left hip osteoarthr itis with mild nonuniform joint space narrowing with partial thickness cartilage loss without degener ative subchondral changes. Moderate lumbar spondylosis. Fluid: Symmetric physiologic amount of fluid within both hip joints. Soft tissues: The iliopsoas and proximal hamstring tendons are normal. Full-thickness tear involving the entire ant erior facet footplate of the left gluteus minimus tendon with approximately 2 cm proximal retraction. Additional full-thickness tear involving the entire lateral facet footplate of the left gluteus medi us tendon with 4 cm proximal retraction. A portion of the left gluteus medias tendon inserting on the superior posterior facet appears to remain intact. There is a moderate amount of fluid at the tear d efects and gluteus medius minimus and medius bursae. Mild right gluteus minimus and medius tendinopat hy without discrete tear. Mild right greater trochanteric bursitis with mild increased fluid signal s uperficial to the gluteus medius and minimus tendons. Asymmetric moderate fatty atrophy of the left g luteus medius and mild fatty atrophy of the left gluteus minimus muscle bellies relative to the contr alateral right gluteus medius and minimus muscle bellies. Musculature of the pelvis and proximal thig hs is otherwise unremarkable. The uterus is not identified and has likely been surgically resected. Limited evaluation of visceral organs of the pelvis is otherwise unremarkable. No pathologically enl arged pelvic/inguinal lymphadenopathy. IMPRESSION: 1. Likely chronic full-thickness tear of the entire left gluteus minimus tendon insertion and full-th ickness tear involving all but a small portion of the superior posterior facet insertion of the left gluteus medius medias tendon with likely secondary mild to moderate muscle atrophy which was present on CT dated 01/20/2020. 2. Mild left hip osteoarthritis. 3. Moderate lumbar spondylosis. Reviewed, dictated and finalized at location A. IMPRESSION: 1. Likely chronic full-thickness tear of the entire left gluteus minimus tendon insertion and full-thickness tear involving all but a small portion of the sup erior posterior facet insertion of the left gluteus medius medias tendon with l ikely secondary mild to moderate muscle atrophy which was present on CT dated 03/21/2019. 2. Mild left hip osteoarthritis. 3. Moderate lumbar spondylosis.
== END 2020-07-02 08:40 | disposition home or self-care (01) ==
LOC: ANHIMG 08:40
PROVIDERS: PCP Family Medicine Adolescent Medicine; Visit Provider Orthopaedic Surgery
DX: M16.12 Unilateral primary osteoarthritis, left hip (principal); M47.896 Other spondylosis, lumbar region
CPT/HCPCS: 73721

== ENCOUNTER 2020-08-22 14:00 | Outpatient (RCR) | payer OTHER, SELFPAY | END 2020-11-08 10:28 | disposition home or self-care (01) | LOC: ANHDMC 14:00 | PROVIDERS: PCP Family Medicine Adolescent Medicine; Visit Provider Family Medicine Adolescent Medicine | DX: E11.65 Type 2 diabetes mellitus with hyperglycemia (principal); Z71.89 Other specified counseling | CPT/HCPCS: G0108 ==

== ENCOUNTER 2020-09-06 08:55 | Outpatient (CLI) | payer OTHER, SELFPAY ==
--- NOTE | ~2020-09-06 | US_ITS ---
EXAMINATION: US carotid duplex BI DATE: 09/06/2020 16:17 INDICATION: TIA. TECHNIQUE: Grayscale, color Doppler, and pulsed Doppler images of the cervical carotid arteries were obtained. The degree of vessel stenosis is placed in one of the following categories: normal, <50%, 5 0-69%, >=70% but less than near-occlusion, near-occlusion, or total occlusion. Note that percent sten osis relative to normal distal artery lumen diameter is indirectly measured from velocity measurement s as described by Brett, et al. Radiology 2003; 229:340-346. Notes: Normal: Peak systolic velocity <125 centimeters/sec and no plaque <50%. Peak systolic velocity <125 ( EDV <40; ICA/CCA PSV ratio <2.0; used these factors only a tandem lesions or low cardiac output or co ntralateral disease) 50-69 %: PSV 125-230 (EDV 40-100; ratio 2-4) >= 70% but less than near occlusion: PSV greater than 230 (EDV > 100; ratio> 4.0) Near Occlusion: PSV that is variable; markedly narrowed lumen Occlusion: Absent flow on color/spectral Doppler and no lumen on larsen scale. COMPARISON: None. FINDINGS: RIGHT: The right common carotid artery (CCA) peak systolic velocity (PSV) is 73 cm/s. The right internal car otid artery (ICA) PSV is 594 cm/s. The right ICA end-diastolic velocity (EDV) is 177 cm/s. The right ICA/CCA PSV ratio is 8.2. The external carotid artery (ECA) PSV is 86 cm/s. There is antegrade flow i n the right vertebral artery. LEFT: The left CCA PSV is 186 cm/s. The left ICA PSV is 94 cm/s. The left ICA EDV is 32 cm/s. The left ICA/ CCA PSV ratio is 0.5. The ECA PSV is 74 cm/s. There is antegrade flow in the left vertebral artery. IMPRESSION: 1. Greater than 70% stenosis in the right internal carotid artery by sonographic criteria. 2. Less than 50% stenosis in the left internal carotid artery by sonographic criteria. Reviewed, dictated and finalized at location B. IMPRESSION: 1. Greater than 70% stenosis in the right internal carotid artery by sonographi c criteria. 2. Less than 50% stenosis in the left internal carotid artery by sonographic cr iteria.
== END 2020-09-06 08:56 | disposition home or self-care (01) ==
PROVIDERS: PCP Family Medicine Adolescent Medicine; Visit Provider Family Medicine Adolescent Medicine
DX: I65.23 Occlusion and stenosis of bilateral carotid arteries (principal)
CPT/HCPCS: 93880

== ENCOUNTER 2020-09-09 15:30 | Outpatient (RCR) | payer OTHER, SELFPAY ==
--- NOTE | 2020-08-08 15:56 | PTOPEVAL ---
PHYSICAL THERAPY EVALUATION Thank you for referring Solitario Contreras to [facility].? Solitario was evaluated for the dx of left hip abductor weakness/muscle tear. The patient is scheduled to be seen for therapy?2 x/week for 4 weeks. Please review, sign, date and return this plan of care MG. I agree with and certify that the following plan of care is medically necessary. Referring Physician Date Attending Provider: Brian Astorga MD *PT Outpatient Evaluation Start: 08/08/20 14:15 Freq: Status: Active Protocol: Document 08/08/20 14:15 MLV (Rec: 08/08/20 15:05 [facility] [id number]) Therapy Assessment Status Assessment Status Evaluation Evaluation Information Problem Diagnosis trochanteric bursitis with abductor tears (left) Onset about 1 year ago Additional Evaluation Detail Pt reports having sciatic trouble off and on over the years and thought she was having a flare up but the pain became more severe and more constant. The pain is at left buttock and lateral hip/groin areas. 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 The patient reports a moderate increase in limp with walking and has more trouble with stairs. The patient was told she needs surgery but won't be done until pt loses weight. Diagnostic Tests MRI For This Problem Yes: full thickness tear left glut minimus tendon, glut medius tendon Other Tests For This Problem Yes: moderate lumbar spondylosis Pain Assessment Timing of Pain Assessment Timing of Pain Assessment Assessment Pain Scale Pain Scale Used Numeric (1 - 10) Self Report Pain Assessment Left Hip(s) Reported Pain Level 5 Other Pain Description 8 with walking Greatest Pain Intensity 10 Pain Aggravating Factors Exercise/Activity,Stair Climbing,Walking,Weight Bearing/Standing Pain Behaviors Guarding,Limping Pain Score Pain Score 5: Self Report Interventions Used Interventions Used By Clinicians Education Pain Relief Interventions Used By Inactivity/Rest,Medication, Patient Sitting Low
--- NOTE | 2020-09-09 16:43 | PTOPEVAL ---
PHYSICAL THERAPY DISCHARGE Thank you for referring Solitario Contreras to [facility] [place].? The patient has completed 9 visits for left hip tear and goals are partially met and peaked. MIAH PT. Please review, sign, date and return this plan of care MG. I agree with and certify the following plan of care. Referring Physician Date Attending Provider: Brian Astorga MD Referring Provider: *PT Outpatient discharge Start: 08/08/20 14:15 Freq: Status: Active Protocol: Document 09/09/20 15:40 MLV (Rec: 09/09/20 16:17 MLV [id number]) Therapy Assessment Status Assessment Status Assessment Status Discharge Evaluation Information Problem Diagnosis trochanteric bursitis with abductor tears (left) Onset about 1 year ago Additional Evaluation Detail Pt reports having less pain and her hip is doing better, requiring less pain meds. Patient reports still having pain with walking and is worse due to increased work load activities. Pt reports increased limp when having more pain, but uses the carts as work like a walker for support which helps. The patient feels the exercises are good and plans to continue the program. Pain Assessment Pain Scale Pain Scale Used Numeric (1 - 10) Self Report Pain Assessment Left Hip(s) Reported Pain Level 4 Pain Description Aching Pain Aggravating Factors Exercise/Activity,Stair Climbing,Walking,Weight Bearing/Standing Pain Behaviors Guarding,Limping Pain Score Pain Score 4: Self Report Interventions Used Interventions Used By Clinicians Education,Exercise Pain Relief Interventions Used By Exercise,Inactivity/Rest, Patient Medication,Position Change Lower Extremity Range of Motion General Lower Extremity Range of Motion Gross Lower Extremity Range of Motion right hip IR 20', left hip IR Comments 20'; pain with left hip IR and ER motions continues but is decreased Lower Extremity Muscle Strength Testing General Lower Extremity Strength Reason Not Measured WNL/Right Gross Lower Extremity Strength left hip flexion 4/5, adduction 4/5, abduction 2/5, extension 3+/5, ER 4-/5, IR 4-
== END 2020-09-12 09:26 | disposition home or self-care (01) ==
LOC: ANHPT 15:30
PROVIDERS: PCP Family Medicine Adolescent Medicine; Visit Provider Orthopaedic Surgery
DX: M70.62 Trochanteric bursitis, left hip (principal)
CPT/HCPCS: 97014; 97110; 97140; 97162; G0283

== ENCOUNTER 2021-01-03 09:58 | Emergency (ER) | payer OTHER, SELFPAY ==
--- NOTE | ~2021-01-03 | CT_ITS ---
EXAMINATION: CT abdomen pelvis wo con DATE: 01/03/2021 12:25 INDICATION: Left flank pain. TECHNIQUE: Computed tomography (CT) of the abdomen and pelvis was performed without intravenous contr ast. Automated exposure control and iterative reconstruction technique were employed. The dose-length product was 1383.56 mGy-cm. COMPARISON: CT abdomen and pelvis 01/20/2020, left hip MRI 07/02/2020 FINDINGS: The visualized portions of the lung bases demonstrate minimal atelectasis. There is mild sc arring in paraspinal right lower lobe. No pleural effusion. The heart size is normal. No pericardial effusion. The liver, gallbladder, spleen, pancreas, and adrenal glands are normal. There is a [address] one in right kidney. There are 2 mm and 3 mm stones in left kidney. There are no dilated loops of bow el. The appendix is normal. There is an umbilical hernia containing fat. There are no pathologically enlarged lymph nodes. There is no free intraperitoneal fluid. There is a benign bone island in proxim al right femur. There are old healed right rib fractures. There is severe lumbar spondylosis and mode rate thoracic spondylosis. There is a benign bone island in T9 vertebral body. There is asymmetric le ft-sided trochanteric bursitis with bursal fluid collection measuring 8.0 x 1.8 x 2.4 cm. IMPRESSION: 1. Bilateral nonobstructing kidney stones. 2. Umbilical hernia containing fat. 3. Left-sided trochanteric bursitis. Reviewed, dictated and finalized at location A.
[2021-01-03 10:09] VITALS: BP 157/71; PULSE 98; RESP 16; TEMP 36.6; O2SAT 98
[2021-01-03 12:25] LABS: Add Urine Microscopic? NO; Appearance Urine Clear (Clear); Bilirubin Urine Negative (Negative); Blood Urine Negative (Negative); Color Urine Yellow (Yellow); Glucose Urine UA Negative (Negative); Ketones Urine Negative (Negative); Leukocyte Esterase Ur Negative LEU/UL (Negative); Nitrate Urine Negative (Negative); Protein Urine Negative (Negative); Specific Grav Ur 1.021 (1.001-1.035); Urobilinogen Urine Negative mg/dL (<2.0)
[2021-01-03] MEDS: KETOROLAC 30 MG/ML VIAL (*BKC) IV PUSH (12:35)
[2021-01-03] MEDS: SODIUM CHLORIDE 0.9% IV 1,000 ML 999 ML IV CONT (12:35)
--- NOTE | 2021-01-03 13:21 | ED.BACK ---
HPI - Back Pain/Injury General Chief Complaint: Back Pain/Injury Stated Complaint: back pain Time Seen by Provider: 01/03/21 11:22 History of Present Illness HPI Narrative: Patient is a 66-year-old female who presents ER with left-sided back pain and hip pain. Has history of an abductor strain in her hip. She has history of bursitis left hip as well. Reports pain increased yesterday and is radiating to her groin which is typical of her. No lower extremity numbness or tingling. No functional deficit of the leg. No urinary or fecal retention/incontinence. Denies fevers or chills or sweats. No known inciting event. No relief with home oxycodone or tramadol. Patient reported one episode of urinary hesitancy and took some Azo. Has history of kidney stones cannot discern if pain is related to her stone or her hip. Related Data Home Medications Medication Instructions Recorded Confirmed cetirizine 10 mg PO DAILY 05/01/19 05/22/19 diclofenac sodium 75 mg PO DAILY 05/01/19 05/22/19 gabapentin 600 mg PO DAILY 05/01/19 05/22/19 glimepiride 2 mg PO DAILY 05/01/19 05/22/19 lisinopril 20 mg PO DAILY 05/01/19 05/22/19 simvastatin 20 mg PO DAILY 05/01/19 05/22/19 Basaglar KwikPen U-100 Insulin 15 unit SUBCUT HS 05/19/19 05/22/19 furosemide 20 mg PO EVERY OTHER DAY 05/19/19 05/22/19 tramadol 50 mg PO DIRECTED PRN 05/19/19 05/22/19 Allergies Allergy/AdvReac Type Severity Reaction Status Date / Time Penicillins Allergy Unknown Unknown Verified 05/19/19 08:45 reaction Review of Systems Review of Systems: All systems reviewed & are unremarkable except as noted in HPI and below Constitutional: Constitutional: Denies chills, Denies fever(s) and Denies weakness ENT: Denies nasal congestion and Denies sore throat Gastrointestinal: Gastrointestinal: Denies abdominal pain, Reports nausea and Denies vomiting Genitourinary: Genitourinary: Denies hematuria and Denies urinary incontinence Comments: Urinary hesitancy Musculoskeletal: Musculoskeletal: Reports back pain, Denies arthralgias, Denies joint swelling and Denies muscle cramps PMFSH Past Medical History Medical History (Updated 01/03/21 @ 13:25 by Selwyn Almaguer MD) Diabetes mellitus Type II Diverticulitis HTN (hypertension) Hx of rotator cuff tear AMOS. IBS (irritable bowel syndrome) Kidney stone OA (osteoarthritis) Pancreatitis Peripheral neuropathy UTI (urinary tract infection) Surgical History Surgical History H/O tubal ligation H/O: hysterectomy History of bladder suspension procedure History of cystoscopy History of genitourinary surgery Bladder surgery History of lithotripsy History of musculoskeletal system surgery Rt heel surgery History of tonsillectomy Hx of rotator cuff surgery AMOS. S/P ureteral stent placement Family History Family History Mother Family history of malignant neoplasm Sibling Family history of malignant neoplasm Father Family history of diabetes mellitus in first degree relative Family history of heart disease in male family member before age 55 Social History Social History Smoking status: Never smoker Alcohol intake: current Exam Narrative: GENERAL: Well-appearing, well-nourished, and in no acute distress. HEAD: Normocephalic, atraumatic. ENT: Mucous membranes moist. CHEST: Clear to auscultation. No respiratory distress. HEART: Regular rate and rhythm. Normal peripheral pulses. ABDOMEN: Soft, nontender, nondistended. Mild left paraspinal muscular tenderness. EXTREMITIES: Normal range of motion. No edema. SKIN: Warm, dry, no rash. NEURO: Alert and oriented x3. Course Course Emergency Course: Patient informed results. Discharge home. Vital Signs Vital signs: Vital Signs Temperature 97.9 F 01/03/21 10:09 Pulse Rate
[2021-01-03 13:47] VITALS: BP 142/72; PULSE 62; RESP 12; O2SAT 99
== END 2021-01-03 13:49 | disposition home or self-care (01) ==
PROVIDERS: Emergency Provider Emergency Medicine; PCP Family Medicine Adolescent Medicine
DX: M70.62 Trochanteric bursitis, left hip (principal); E11.42 Type 2 diabetes mellitus with diabetic polyneuropathy; I10 Essential (primary) hypertension; K58.9 Irritable bowel syndrome, unspecified; Z87.440 Personal history of urinary (tract) infections; M19.90 Unspecified osteoarthritis, unspecified site; Z87.442 Personal history of urinary calculi; N20.0 Calculus of kidney; K42.9 Umbilical hernia without obstruction or gangrene
CPT/HCPCS: 74176; 81003; 96361; 96374; 99284; J1885; J7030

== ENCOUNTER 2021-03-06 10:41 | Outpatient (CLI) | payer OTHER, SELFPAY ==
[2021-03-06 11:18] LABS: CRP < 0.5 mg/dL (<1.0); Uric Acid 4.9 mg/dL (2.5-7.5)
[2021-03-06 11:26] LABS: Hemoglobin A1C 9.2 % (<5.7)
[2021-03-06 11:50] LABS: Erythrocyte Sedimentation Rate 18 mm/hr (0-20)
== END 2021-03-06 10:42 | disposition home or self-care (01) ==
LOC: ANHLAB 10:43
PROVIDERS: PCP Family Medicine Adolescent Medicine; Visit Provider Family Medicine Adolescent Medicine
DX: E11.65 Type 2 diabetes mellitus with hyperglycemia (principal); M54.50 Low back pain, unspecified; M25.50 Pain in unspecified joint
CPT/HCPCS: 36415; 83036; 84550; 85652; 86140

== ENCOUNTER 2021-06-06 15:33 | Outpatient (CLI) | payer OTHER, SELFPAY ==
--- NOTE | ~2021-06-06 | MM_ITS ---
EXAMINATION: MM screening farida BI w rhonda HISTORY: Screening mammogram TECHNIQUE: Craniocaudal and mediolateral oblique 3-D tomosynthesis images were obtained and synthetic 2-D images were generated. CAD analysis was submitted and interpreted. COMPARISON: No prior mammogram is available for comparison at this institution. BREAST PARENCHYMAL COMPOSITION: FINDINGS: Bilateral chronic stable small intramammary circumscribed lymph nodes. There is no evidence of suspicious mass, calcification, or architectural distortion to suggest malignancy in either breas t. There has been no suspicious interval change. IMPRESSION: 1. No mammographic evidence of malignancy. 2. Recommend routine screening mammography in one year. BI-RADS Category 2: Benign finding(s). Reviewed, dictated and finalized at location A.
== END 2021-06-06 15:34 | disposition home or self-care (01) ==
LOC: ANHIMG 15:36
PROVIDERS: PCP Family Medicine Adolescent Medicine; Visit Provider Family Medicine Adolescent Medicine
DX: Z12.31 Encounter for screening mammogram for malignant neoplasm of breast (principal)
CPT/HCPCS: 77063; 77067

== ENCOUNTER 2021-07-21 08:09 | Outpatient (CLI) | payer OTHER, SELFPAY ==
[2021-07-21 08:28] LABS: Basophils Percent Auto 0.5 % (0.2-1.2); Eosinophils Absolute Auto 0.1 K/mm3 (0-0.3); Eosinophils Percent Auto 1.2 % (0-4.4); Hematocrit 45.6 % (37.0-47.0); Hemoglobin 14.2 g/dL (12.0-15.0); Immature Granulocyte Absolute 0.02 K/mm3 (0.00-0.031); Immature Granulocyte Percent A 0.4 % (0-0.5); Lymphocytes Absolute Auto 2.46 K/mm3 (0.9-3.2); Lymphocytes Percent Auto 43.5 % (18.3-44.2); Mean Corpuscular HGB Conc 31.1 g/dl (32-36); Mean Corpuscular Hemoglobin 26.7 pg (26-34); Mean Corpuscular Volume 85.9 fl (80-100); Mean Platelet Volume 8.9 fl (7.4-10.4); Monocytes Absolute Auto 0.5 K/mm3 (0.1-0.6); Neutrophils Absolute Auto 2.6 K/mm3 (1.3-6.7); Neutrophils Percent Auto 46.4 % (45.5-73.1); Platelet Count Result 177 k/mm3 (150-375); Red Blood Count 5.31 M/mm3 (4.2-5.4); Red Cell Distribution Width 15.9 % (11.5-14.5); White Blood Count 5.7 K/mm3 (4.5-10.0)
[2021-07-21 08:37] LABS: Alanine Aminotransferase 24 U/L (4-35); Albumin Level 4.4 g/dL (3.5-5.1); Alkaline Phosphatase 98 U/L (38-126); Anion Gap 6 mmol/L (8-16); Aspartate Amino Transferase 25 U/L (14-36); Bilirubin,Total 0.6 mg/dL (0.2-1.3); Blood Urea Nitrogen 25 mg/dL (7-17); Calcium 9.1 mg/dL (8.4-10.2); Carbon Dioxide 31 mmol/L (22-30); Chloride 103 mmol/L (98-107); Cholesterol 147 mg/dL (0-200); Estimated Glomerular Filt Rate > 60; Glucose 183 mg/dL (65-110); HDL Direct 39 mg/dL; Potassium 4.7 mmol/L (3.4-5.0); Sodium 140 mmol/L (137-145); Triglycerides 110 mg/dL (<150)
[2021-07-21 08:47] LABS: LDL Cholesterol Direct 71 mg/dL
[2021-07-21 09:25] LABS: Free T4 Free Thyroxine 1.03 ng/mL (0.78-2.19); Vitamin D 25 Hydroxy 26.2 ng/mL
[2021-07-21 11:51] LABS: Creatinine Urine 96.1 mg/dL
[2021-07-21 11:57] LABS: MALB Creatinine Ratio 14.5 mg/g (0-30); Microalbumin Urine Random 13.9 mg/L (0-16.7)
== END 2021-07-21 08:10 | disposition home or self-care (01) ==
LOC: ANHLAB 08:11
PROVIDERS: PCP Family Medicine Adolescent Medicine; Visit Provider Nurse Practitioner Family
DX: E11.9 Type 2 diabetes mellitus without complications (principal); G62.9 Polyneuropathy, unspecified; E55.9 Vitamin D deficiency, unspecified; I10 Essential (primary) hypertension
CPT/HCPCS: 36415; 80053; 80061; 82043; 82306; 82607; 84439; 84443; 85025

== ENCOUNTER 2022-01-10 16:21 | Outpatient (CLI) | payer OTHER, MEDICARE, SELFPAY ==
--- NOTE | ~2022-01-10 | CT_ITS ---
EXAMINATION: CT abdomen pelvis w con DATE: 01/10/2022 17:05 INDICATION: Epigastric abdominal pain. TECHNIQUE: Computed tomography (CT) of the abdomen and pelvis was performed with 100 mL Omnipaque 350 intravenous contrast. Automated exposure control and iterative reconstruction technique were employe d. The dose-length product was 1527.39 mGy-cm. COMPARISON: CT abdomen and pelvis 01/03/2021 FINDINGS: The visualized portions of the lung bases demonstrate mild atelectasis. No pleural effusion . The heart size is normal. No pericardial effusion. The liver, gallbladder, spleen, pancreas, and ad renal glands are normal. There is cortical thinning of the kidneys. There is a 2 mm stone in right ki dney. There is a 3 mm stone in left kidney. There are no dilated loops of bowel. The appendix is norm al. There are no pathologically enlarged lymph nodes. There is no free intraperitoneal fluid. There i s an umbilical hernia containing fat. There is a benign bone island in proximal right femur. There is mild thoracic spondylosis and moderate lumbar spondylosis. There is mild chronic height loss of mult iple thoracic vertebral bodies. IMPRESSION: 1. Umbilical hernia containing fat. Reviewed, dictated and finalized at location A.
[2022-01-10 16:55] LABS: Estimated Glomerular Filt Rate > 60
[2022-01-10 17:33] LABS: Hematocrit 46.1 % (37.0-47.0); Hemoglobin 14.5 g/dL (12.0-15.0); Mean Corpuscular HGB Conc 31.5 g/dl (32-36); Mean Corpuscular Hemoglobin 27.2 pg (26-34); Mean Corpuscular Volume 86.3 fl (80-100); Mean Platelet Volume 8.8 fl (7.4-10.4); Platelet Count Result 137 k/mm3 (150-375); Red Blood Count 5.34 M/mm3 (4.2-5.4); Red Cell Distribution Width 14.9 % (11.5-14.5); White Blood Count 6.8 K/mm3 (4.5-10.0)
[2022-01-10 17:51] LABS: Alanine Aminotransferase 22 U/L (6-35); Albumin Level 4.4 g/dL (3.5-5.1); Alkaline Phosphatase 93 U/L (38-126); Anion Gap 14 mmol/L (8-16); Aspartate Amino Transferase 21 U/L (14-36); Bilirubin,Total 0.7 mg/dL (0.2-1.3); Blood Urea Nitrogen 30 mg/dL (7-17); Calcium 9.1 mg/dL (8.4-10.2); Carbon Dioxide 27 mmol/L (22-30); Chloride 98 mmol/L (98-107); Estimated Glomerular Filt Rate > 60; Glucose 172 mg/dL (65-110); Lipase 109 U/L (23-300); Potassium 3.8 mmol/L (3.4-5.0); Sodium 139 mmol/L (137-145)
== END 2022-01-10 16:22 | disposition home or self-care (01) ==
PROVIDERS: PCP Family Medicine Adolescent Medicine; Visit Provider Physician Assistant
DX: R10.13 Epigastric pain (principal); Z87.19 Personal history of other diseases of the digestive system; K42.9 Umbilical hernia without obstruction or gangrene
CPT/HCPCS: 74177; 80053; 83690; 85027; Q9967

== ENCOUNTER 2022-08-01 14:33 | Outpatient (CLI) | payer MEDICARE, SELFPAY ==
--- NOTE | ~2022-08-01 | MM_ITS ---
EXAMINATION: MM screening farida BI w rhonda HISTORY: Screening mammogram, family history of breast cancer in her mother. TECHNIQUE: Craniocaudal and mediolateral oblique 3-D tomosynthesis images were obtained and synthetic 2-D images were generated. CAD analysis was submitted and interpreted. COMPARISON: 06/06/2021, 05/21/2020, 04/28/2019 BREAST PARENCHYMAL COMPOSITION: There are scattered areas of fibroglandular density. FINDINGS: No suspicious mass, calcification, or architectural distortion are identified in either adam ast to suggest malignancy. There has been no suspicious interval change. IMPRESSION: 1. No mammographic evidence of malignancy. 2. Recommend routine screening mammography in one year. BI-RADS Category 1: Negative Reviewed, dictated and finalized at location A.
== END 2022-08-01 14:34 | disposition home or self-care (01) ==
LOC: ANHIMG 14:35
PROVIDERS: PCP Family Medicine Adolescent Medicine; Visit Provider Family Medicine Adolescent Medicine
DX: Z12.31 Encounter for screening mammogram for malignant neoplasm of breast (principal)
CPT/HCPCS: 77063; 77067

== ENCOUNTER 2022-09-13 14:15 | Outpatient (RCR) | payer MEDICARE, SELFPAY ==
[2022-07-19 15:03] VITALS: BMI 41.2
[2022-08-09 15:00] VITALS: BMI 41.4
[2022-08-09 16:02] VITALS: BMI 41.4
[2022-09-12 14:48] VITALS: BMI 41.1; BMI 41.4
== END 2022-10-01 09:03 | disposition home or self-care (01) ==
LOC: ANHDMC 14:15
PROVIDERS: PCP Family Medicine Adolescent Medicine; Visit Provider Internal Medicine Endocrinology, Diabetes & Metabolism
DX: E11.3299 Type 2 diabetes mellitus with mild nonproliferative diabetic retinopathy without macular edema, unspecified eye (principal); E11.65 Type 2 diabetes mellitus with hyperglycemia; Z71.89 Other specified counseling; Z71.3 Dietary counseling and surveillance
CPT/HCPCS: 97802; 97803; G0108

== ENCOUNTER 2022-11-30 09:58 | Outpatient (CLI) | payer MEDICARE, SELFPAY ==
[2022-11-30 10:42] LABS: Hematocrit 45.2 % (37.0-47.0); Hemoglobin 13.9 g/dL (12.0-15.0); Mean Corpuscular HGB Conc 30.8 g/dl (32-36); Mean Corpuscular Hemoglobin 25.3 pg (26-34); Mean Corpuscular Volume 82.3 fl (80-100); Mean Platelet Volume 9.3 fl (7.4-10.4); Platelet Count Result 181 k/mm3 (150-375); Red Blood Count 5.49 M/mm3 (4.2-5.4); Red Cell Distribution Width 16.3 % (11.5-14.5); White Blood Count 6.4 K/mm3 (4.5-10.0)
[2022-11-30 11:38] LABS: Alanine Aminotransferase 25 U/L (6-35); Albumin Level 4.5 g/dL (3.5-5.1); Alkaline Phosphatase 74 U/L (38-126); Anion Gap 9 mmol/L (8-16); Aspartate Amino Transferase 29 U/L (14-36); Bilirubin,Total 0.8 mg/dL (0.2-1.3); Blood Urea Nitrogen 25 mg/dL (7-17); Calcium 8.8 mg/dL (8.4-10.2); Carbon Dioxide 28 mmol/L (22-30); Chloride 103 mmol/L (98-107); Cholesterol 135 mg/dL (0-200); Creatine Kinase 139 U/L (30-135); Estimated Glomerular Filt Rate > 60; Glucose 70 mg/dL (65-110); HDL Direct 43 mg/dL; Magnesium 2.2 mg/dL (1.6-2.3); Potassium 4.4 mmol/L (3.4-5.0); Sodium 140 mmol/L (137-145); Triglycerides 95 mg/dL (<150)
[2022-11-30 11:48] LABS: LDL Cholesterol Direct 70 mg/dL
== END 2022-11-30 09:59 | disposition home or self-care (01) ==
PROVIDERS: PCP Family Medicine Adolescent Medicine; Visit Provider Family Medicine Adolescent Medicine
DX: E11.3299 Type 2 diabetes mellitus with mild nonproliferative diabetic retinopathy without macular edema, unspecified eye (principal); I10 Essential (primary) hypertension; K76.0 Fatty (change of) liver, not elsewhere classified; R25.2 Cramp and spasm
CPT/HCPCS: 36415; 80053; 80061; 82550; 83735; 85027

== ENCOUNTER 2023-01-08 14:30 | Outpatient (RCR) | payer MEDICARE, SELFPAY ==
[2022-10-31 14:45] VITALS: BMI 40.5
[2022-12-19 15:00] VITALS: BMI 40.1
[2022-12-19 16:12] VITALS: BMI 40.1
== END 2023-01-14 10:26 | disposition home or self-care (01) ==
LOC: ANHDMC 14:30
PROVIDERS: PCP Family Medicine Adolescent Medicine; Visit Provider Internal Medicine Endocrinology, Diabetes & Metabolism
DX: E11.3299 Type 2 diabetes mellitus with mild nonproliferative diabetic retinopathy without macular edema, unspecified eye (principal); E11.65 Type 2 diabetes mellitus with hyperglycemia; Z71.3 Dietary counseling and surveillance; Z71.89 Other specified counseling
CPT/HCPCS: 97803; G0108

== ENCOUNTER 2023-03-28 14:45 | Outpatient (RCR) | payer MEDICARE, SELFPAY ==
[2023-01-30 14:50] VITALS: BMI 40.1
[2023-01-30 14:59] VITALS: BMI 40.1
[2023-03-28 14:46] VITALS: BMI 39.6
[2023-03-28 16:04] VITALS: BMI 39.6
== END 2023-04-22 08:51 | disposition home or self-care (01) ==
LOC: ANHDMC 14:45
PROVIDERS: PCP Family Medicine Adolescent Medicine; Visit Provider Internal Medicine Endocrinology, Diabetes & Metabolism
DX: E11.3299 Type 2 diabetes mellitus with mild nonproliferative diabetic retinopathy without macular edema, unspecified eye (principal); E11.65 Type 2 diabetes mellitus with hyperglycemia; Z71.3 Dietary counseling and surveillance; Z71.89 Other specified counseling
CPT/HCPCS: 97803; G0108

== ENCOUNTER 2023-06-05 08:25 | Outpatient (CLI) | payer MEDICARE, SELFPAY ==
--- NOTE | ~2023-06-05 | US_ITS ---
US arterial ankle brachial ind INDICATION: Peripheral vascular disease TECHNIQUE: Segmental pressures and plethysmographic and Doppler waveforms of the brachial and lower e xtremity arteries were obtained. COMPARISON: None. FINDINGS: Right and left brachial artery pressures of 133 mm Hg and 139 mm Hg, respectively, are concordant (no rmal difference <= 30 mmHg). The right ankle-brachial index (LUPIS) is 1.29 (normal >= 0.9-1.0). The right great toe-brachial index (TBI) is 0.44 (normal >= 0.60). The left LUPIS is 1.14. The left TBI is 0.27. IMPRESSION: 1. Diminished bilateral toe brachial indices consistent with peripheral arterial disease. Reviewed, dictated and finalized at location A. IMPRESSION: 1. Diminished bilateral toe brachial indices consistent with peripheral arteria l disease.
== END 2023-06-05 08:26 | disposition home or self-care (01) ==
PROVIDERS: PCP Family Medicine Adolescent Medicine; Visit Provider Nurse Practitioner Family
DX: I73.9 Peripheral vascular disease, unspecified (principal)
CPT/HCPCS: 93922

== ENCOUNTER 2023-07-16 14:30 | Outpatient (RCR) | payer MEDICARE, SELFPAY | END 2023-08-07 23:59 | disposition home or self-care (01) | LOC: ANHDMC 14:30 | PROVIDERS: PCP Otolaryngology; Visit Provider Internal Medicine Endocrinology, Diabetes & Metabolism | DX: E11.3293 Type 2 diabetes mellitus with mild nonproliferative diabetic retinopathy without macular edema, bilateral (principal); E11.65 Type 2 diabetes mellitus with hyperglycemia; Z71.89 Other specified counseling | CPT/HCPCS: G0108 ==

== ENCOUNTER 2023-10-08 14:58 | Outpatient (CLI) | payer MEDICARE, SELFPAY ==
--- NOTE | ~2023-10-08 | MM_ITS ---
EXAMINATION: MM screening farida BI w rhonda HISTORY: Screening TECHNIQUE: Craniocaudal and mediolateral oblique 3-D tomosynthesis images were obtained and synthetic 2-D images were generated. CAD analysis was submitted and interpreted. COMPARISON: Comparison to multiple prior studies sequentially, with oldest reviewed study dated 04/17. BREAST PARENCHYMAL COMPOSITION: Not dense: There are scattered areas of fibroglandular density. FINDINGS: There is no evidence of suspicious mass, calcification, or architectural distortion to sugg est malignancy in either breast. There has been no suspicious interval change. IMPRESSION: 1. No mammographic evidence of malignancy. 2. Recommend routine screening mammography in one year. BI-RADS Category 1: Negative Reviewed, dictated and finalized at location B.
== END 2023-10-08 14:59 | disposition home or self-care (01) ==
LOC: ANHIMG 14:59
PROVIDERS: PCP Family Medicine Adolescent Medicine; Visit Provider Family Medicine Adolescent Medicine
DX: Z12.31 Encounter for screening mammogram for malignant neoplasm of breast (principal)
CPT/HCPCS: 77063; 77067

== ENCOUNTER 2024-04-17 06:49 | Outpatient (CLI) | payer MEDICARE, SELFPAY ==
--- OUTSIDE RECORDS SUMMARY | 2024-04-17 06:53 | XMS_ITS | Encounter Summary ---
Author Organization [facility] Address [address] [place] [address]. [place], [place] [address] [place] [address] Care Team Providers Care Aged Or Disabled Care Worker Name Role Phone Mayur Maciel MD Primary Care Provider +1- [phone] Encounter Details Date Type Department Care Team (Late st Contact Info) Description 10/07/2022 [employer] Message Enc [facility], [address] [place], [place] [id number] Weston Emerson MD Three [facility]. [facility] [address] [place], [place] [id number] test result and follow up appointment if needed Social History Tobacco Use Types Packs/Day Years Used Date Smoking Tobacco: Never Smokeless Tobacco: Never Alcohol Use Standard Drinks/Week Comments Yes 0 (1 standard drink = 0.6 oz pur e alcohol) once/week Comments No Sex and Gender Information Value Date Recorded Sex Assigned at Not on file Legal Sex Female 10:00 AM CDT Gender Identity Not on file Sexual Orientation Not on file documented as of this encounter Functional Status * RETIRED Are you deaf or do you have serious difficulty hearing Answer Date of Assessment Author Status No 10/13/2020 4:00 PM CDT Activ e * RETIRED Are you blind or do you have serious difficulty seeing, even when wearing glasses? Answer Date of Assessment Author Status No 10/13/2020 4:00 PM CDT Activ e * Do you have serious difficulty walking or climbing stairs? Answer Date of Assessment Author Status No 10/13/2020 4:00 PM CDT Regla Gupta RN Active * Do you have difficulty dressing or bathing? Answer Date of Assessment Author Status No 10/13/2020 4:00 PM CDT Regla Gupta RN Active * Because of a physical, mental, or emotional condition, do you have difficulty doing errands alone such as visiting a doctor's office or shopping? Answer Date of Assessment Author Status No 10/13/2020 4:00 PM CDT Regla Gupta RN Active documented as of this encounter Mental Status * Because of a physical, mental, or emotional condition, do you have serious difficulty concentrating, remembering, or making decisions? Answer Entry Date Author Status No 10/13/2020 4:00 PM CDT Regla Gupta RN Active documented in this encounter Progress Notes * Ayesha Vasquez RN - 10/08/2022 12:47 PM CDT . documented in this encounter Plan of Treatment Upcoming Encounters Date Type Department Care Team (Late st Contact Info) Description 07/22/2024 10:00 AM CDT Appointment [facility] Vascular Lab [facility] [place] [address] Weston Emerson MD Three [facility]. [address] [place], [place] [address] 07/30/2024 9:45 AM CDT Office Visit [facility], [address] [place], [place] [id number] Weston Emerson MD Three [facility]. [address] [place], [place] [address] documented as of this encounter Goals Goal Patient Goal Type Associated Problems Recent Progress Patient-Stated? Author Family - family caregiver with be involved in care transitions and discharge planning General No Edna Sierra, VENDING MECHANIC documented as of this encounter Visit Diagnoses Not on filedocumented in this encounter Care Teams Aged Or Disabled Care Worker Relationship Specialty Start Date End Date Mayur Maciel MD [address] [address] PCP - General FAMILY PRACTICE 10/13/20 documented as of this encounter
--- OUTSIDE RECORDS SUMMARY | 2024-04-17 06:53 | XMS_ITS | Encounter Summary ---
Author Organization [facility] Address [address] [place] [address]. [place] [address] [place] [address] Care Team Providers Care Physiologist Name Role Phone Mayur Maciel MD Primary Care Provider +1- [phone] Encounter Details Date Type Department Care Team (Late st Contact Info) Description 12/26/2020 [employer] [facility] Patient Accounts [address] [place] [address] [facility] [facility] Provider Financial assistance application Social History Tobacco Use Types Packs/Day Years [...] Gupta RN Active documented in this encounter Plan of Treatment Upcoming Encounters Date Type Department Care Team (Late st Contact Info) Description 07/22/2024 10:00 AM CDT Appointment [facility] Vascular Lab [address] [facility] [place] [address] Weston Emerson MD Three [facility]. [facility] [address] [place], [place] [address] 07/30/2024 9:45 AM CDT Office Visit [facility] THREE [facility], [facility] [address] [place], [place] [phone] Weston Emerson MD Three [facility]. [address] [place], [place] [address] documented as of this encounter Goals Goal Patient Goal Type Associated Problems Recent Progress Patient-Stated? Author Family - family caregiver with be involved in care transitions and discharge planning General No Edna Sierra, CLINICAL APPLICATIONS MANAGER documented as of this encounter Visit Diagnoses Not on filedocumented in this encounter Care Teams Physiologist Relationship Specialty Start Date End Date Mayur Maciel MD [address] [place] [address] [address] [place] [address] PCP - General FAMILY PRACTICE 10/13/20 documented as of this encounter
--- OUTSIDE RECORDS SUMMARY | 2024-04-17 06:53 | XMS_ITS | Clinical Summary ---
Author Organization [facility] Address [address] [place] [address]. [place], [place] [address] [place] [address] Care Team Providers Care Supply Chain Director Name Role Phone Mayur Maciel MD Primary Care Provider +1- [phone] Allergies Active Allergy Reactions Criticality Noted Date Comments Eluxadoline Unknown 12/25/2021 Penicillins Unknown 10/13/2020 Clopidogrel Rash Low 10/13/2020 Pregabalin Unknown 12/25/2021 Medications gabapentin 600 MG tablet Take 600 mg by mouth daily. 07/25/2020 Active lisinopril 20 MG tablet Take 20 mg by mouth daily. Active aspirin 325 MG tablet Take 325 mg by mouth daily. Active insulin glargine 100 UNIT/ML injection (PEN) Inject 35 Units into the skin nightly at bedtime. Active furosemide 20 MG tablet Take 20 mg by mouth daily as needed (Edema). Active atorvastatin (LIPITOR) 80 MG tablet Take 1 tablet (80 mg total) by mouth daily. 10/26/2021 Active DULoxetine (CYMBALTA) 30 MG capsule TAKE 1 CAPSULE BY MOUTH ONCE DAILY FOR 14 DAYS AND THEN 2 ONCE DAILY 11/15/2021 Active Glucagon 1 MG/0.2ML Solution Auto-injector once. 08/28/2021 Activ e insulin lispro (HUMALOG) 100 UNIT/ML injection (VIAL) 07/17/2022 Active RELION PEN NEEDLES 31G X 6 MM Misc USE 1 TO INJECT INSULIN ONCE DAILY 11/18/2021 Active oxybutynin XL (DITROPAN-XL) 10 MG 24 hr tablet Take 1 tablet (10 mg total) by mouth daily. 10/21/2021 Active pantoprazole EC (PROTONIX) 40 MG tablet Take 1 tablet (40 mg total) by mouth nightly at bedtime. 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) 09/20/2022 Neuropathy 09/20/2022 Type 2 diabetes mellitus wit hout complications ([facility]) 09/20/2022 Vitamin D deficiency 09/20/2022 Bilateral carotid artery stenosis 09/20/2022 Carotid occlusion, right 10/13/2020 TIA (transient ischemic attack) 10/13/2020 Irritable bowel syndrome with diarrhea 7 Diarrhea 01/10/2016 Nausea with vomiting 01/10/2016 Immunizations Name Administration Dates Next Due PFIZER COVID-19 (ORIGINAL FO RMULATION, PURPLE CAP) mRNA, LNP-S, PF, 30 MCG/0.3 ML DOSE 12/23/2020,03/26/2020,03/05/2020 Tdap (Generic) 10/30/2017 Family History Medical History Relation Comments CHF Brother COPD Brother Lung Cancer Brother CHF Father COPD Father hodgkins lymphoma Mother Relation Status Comments Brother Father Mother Social History Tobacco Use Types Packs/Day Years Used Date Smoking Tobacco: Never Smokeless Tobacco: Never Alcohol Use Standard Drinks/Week Comments Yes 0 (1 standard drink = 0.6 oz pur e alcohol) once/week Comments No Sex and Gender Information Value Date Recorded Sex Assigned at Not on file Legal Sex Female 10:00 AM CDT Gender Identity Not on file Sexual Orientation Not on file Last Filed Vital Signs Vital Sign Reading Time Taken Comments Blood Pressure 140/60 08/29/2023 3:26 PM CDT Pulse 76 08/29/2023 3:26 PM CDT Temperature 36.8 ??C (98.2 ??F) 10/20/2020 4:00 AM CD T Respiratory Rate 14 10/20/2020 4:00 AM CDT Oxygen Saturation 95% 10/20/2020 4:00 AM CDT Inhaled Oxygen Concentration - - Weight 105.4 kg (232 lb 6.4 oz) 08/29/2023 3:26 PM CDT Height 165.1 cm (5' 5 ) 08/29/2023 3:26 PM CDT Body Mass Index 38.67 08/29/2023 3:26 PM CDT Plan of Treatment Upcoming Encounters Date Type Department Care Team (Late st Contact Info) Description 07/22/2024 10:00 AM CDT Appointment [facility] [place] [address] Weston Emerson MD Three [facility]. [facility] [address] [place], [place] [address] 07/30/2024 9:45 AM CDT Office Visit [facility], [address] [place], [place] [address] Weston Emerson MD Three [facility]. [facility] [address] [place] [address] Health Maintenance Due Date Last Done Comments ASCVD Statin 1957 Colorectal Cancer Screening Colonoscopy (10 Years) 1957 Kidney Health Evaluation 1957 Pneumococcal Vaccine: 65+ Years (1 of 2 - PCV) 1963 Diabetes: Retinopathy Eye Exam 1975 Hepatitis C 1975 Mammogram Screening 1997 Zoster Vaccines (1 of 2) 2007 RSV Immunization or 60+ Years (1 - Risk 60-74 years 1-dose series) 2017 Hemoglobin A1C 04/15/2021 10/13/2020 ASCVD LDL 10/14/2021 10/14/2020 Lipid Panel 10/14/2021 10/14/2020 Annual Medicare Wellness Visit 2022 Dexa Scan (General) 2022 COVID-19 Vaccine (4 - 2023-2 5 season) 2023 12/23/2020, 03/26/2020, 03/05/2020 Influenza Adult (#1) 2023 DTaP, Tdap and Td Vaccines ( 2 - Td or Tdap) 10/31/2027 10/30/2017 Meningococcal B Vaccine Aged Out No l onger eligible based on patient's age to complete this topic Meningococcal Vaccine Aged Out No star shima eligible based on patient's age to complete this topic RSV Immunizations Under 20 Months Aged Out No longer eligible b ased on patient's age to complete this topic Goals Goal Patient Goal Type Associated Problems Recent Progress Patient-Stated? Author Family - family caregiver with be involved in care transitions and discharge planning General No Edna Sierra, THREAD PULLERcarpet renovator Devices Implanted Type Area Smoke Room Operator Device Identifier Shelf Expiration Date Model / Serial / Lot Patch Cv Thk.36mm; Ulthn; Taper 6x.3in Knit; - [id number] Implanted:Qty : 1 on 10/18/2020 by Berto Castro MD at [facility] [place] Graft Right: Carotid [employer] [id number] 04/17/2025 [id number] / [id number] / [id number] Description:Right carotid ar scot patch Procedures Procedure Name Priority Date/Time Associated Diagnosis Comments LIPID PANEL Routine 10/14/2020 4:40 AM CDT HEMOGLOBIN, GLYCOSYLATED Routine 10/13/2020 10:19 AM CDT from Last 3 Months or Most Recently Relevant to Health Maintenance Results * (ABNORMAL) LIPID PANEL (10/14/2020 4:40 AM CDT) CHOLESTEROL 133 <200 MG/DL 10/14/2020 5:23 AM T [facility] TRIGLYCERIDES 205(H) <150 MG/DL 10/14/2020 5:23 AM [facility] HDL 28(L) >40.0 MG/DL 10/14/2020 5:23 AM T [facility] LDL (CALCULATED) 64 <100 MG/DL 10/14/2020 5:23 AM T [facility] NON HDL CHOLESTEROL 105 <130 MG/DL 10/14/2020 5:23 AM [facility] CHOL/HDL RATIO 4.8(H) 0.0 - 4.5 10/14/2020 5:23 AM [facility] VLDL CALCULATION 41 5 - 55 MG/DL 10/14/2020 5:23 AM [facility] LIPID INTERPRETATION 10/14/2020 5:23 AM [facility] Comment: NIH CONCENSUS REPORT RECOMMENDATIONS: ?ADULT ?CHILD ??LOW RISK: ?CHOLESTEROL ? <200 ? <170 ?TRIGLYCERIDE ?<150 ?--- ?HDL ? >=60 ?--- ?LDL ? <100 ? <110 ??BORDERLINE: ?CHOLESTEROL ? 200-239 ?? 170-199 ?TRIGLYCERIDE ?150-199 ? --- ?HDL ?40-59 ?--- ?LDL ? 100-159 ?? 110-129 ??HIGH RISK: ?CHOLESTEROL ? >=240 ?>=200 ?TRIGLYCERIDE ?>=200 ? --- ?HDL ?<40 ?--- ?LDL ? >=160 ?>=130 10/14/2020 4:40 AM CDT Akila Pablo MD LABORATORY Final Result Performing Organization Address [facility] de Phone Number [facility] [address] [place] [address], * (ABNORMAL) HEMOGLOBIN, GLYCATED (10/13/2020 10:19 AM CDT) HGB A1C 9.2(H) <5.7 % 10/13/2020 1:59 PM CDT [facility] Comment: ADA GUIDELINES 2010 5.7 TO 6.4% INCREASED RISK OF DIABETES > OR = 6.5% CONSISTENT WITH DIABETES ESTIMATED AVG GLUCOSE 217 mg/dL 10/13/2020 1:59 PM CDT [facility] 10/13/2020 10:1 9 AM CDT us Akila Pablo MD LABORATORY Final Result Performing Organization Address [facility] de Phone Number [facility] [address] [facility] [place] [address], from Last 3 Months or Most Recently Relevant to Health Maintenance Insurance [employer] Advance Directives Documents on File Type Date Recorded Patient Director Of Fundraising Expl anation Advance Directives and Living Will 10/21/2020 11:04 AM 10/03/2017 POA FOR HEALTH CARE * Full Code (Latest Code Status on File) Date Activated Date Inactivated Comments 10/13/2020 12:34 PM 10/20/2020 1:44 PM Care Teams Supply Chain Director Relationship Specialty Start Date End Date Mayur Maciel MD [address] [address] PCP - General FAMILY PRACTICE 10/13/20
--- OUTSIDE RECORDS SUMMARY | 2024-04-17 06:53 | XMS_ITS | Continuity of Care Document ---
Author Organization [facility] Address [address] [place] [address] Phone Care Team Providers Care Supervisor Sewer Maintenance Name Role Phone [facility] Unavailable [...] Diagnoses Date Provider Providers Copied on Encounter [facility], [address] [place], [place] [address] [address], [place], [place], [id number], [place] tel:[phone] [facility] No Information 0 [facility] . [address] [facility], [facility] [address], [place], [place], [id number], [place]. tel:[phone] Referring Provider: Jose Alejandro Green OD A, [address], [place], [address]. tel:[phone] sorto Provider: Shivani Knight, [address] [facility], [place], [address]. tel:[phone] 2399 [facility], [address], [place], [place], [id number], [place] tel:[phone] [facility] No Information Feb-1 1-201 0 Green OD Jose Alejandro. [address] [facility] , [address], [place], [place], [facility], . tel:[phone] Referring Provider: Mayur Maciel MD, [address] [place] [address], [address]. tel:[phone] [facility], [address] [place] [address] [address], [place], [place], [id number], tel:[phone] [facility] No Information 5-200 9 Green OD Jose Alejandro. [address] [facility] , [address], [place], [place], [facility], [place]. tel:[phone] Referring Provider: Mayur Maciel MD, [address] [place] [address], [address]. tel:[phone] [phone] [facility], [address] [facility], [place], [place], [id number], tel:[phone] [facility] No Information 6-200 7 Green OD Jose Alejandro. [address] [facility] , [address], [place], [place], [facility], [place]. tel:[phone] Family History Family Member Type Diagnosis Age At Onset No Information Payers Payer name Insurance type Covered alliance party ID Authorberlina timadalyn(s) [employer] Plan CI [id number] Social History Type Description Quantity Date Captured [...]
[2024-04-17 07:48] LABS: Alanine Aminotransferase 15 U/L (6-35); Albumin Level 3.7 g/dL (3.5-5.1); Alkaline Phosphatase 82 U/L (38-126); Anion Gap 8 mmol/L (4-12); Aspartate Amino Transferase 20 U/L (14-36); Bilirubin,Total 0.6 mg/dL (0.2-1.3); Blood Urea Nitrogen 20 mg/dL (7-17); Calcium 9.1 mg/dL (8.4-10.2); Carbon Dioxide 29 mmol/L (22-30); Chloride 107 mmol/L (98-107); Cholesterol 201 mg/dL (0-200); Estimated Glomerular Filt Rate > 60; Glucose 122 mg/dL (65-110); HDL Direct 49 mg/dL; Potassium 4.7 mmol/L (3.4-5.0); Sodium 144 mmol/L (137-145); Triglycerides 72 mg/dL (<150)
[2024-04-17 08:00] LABS: LDL Cholesterol Direct 130 mg/dL
[2024-04-17 08:16] LABS: Thyroid Stimulating Hormone 0.617 uIU/mL (0.465-4.680)
[2024-04-17 08:23] LABS: Free T4 Free Thyroxine 0.99 ng/dL (0.78-2.19)
[2024-04-17 10:27] LABS: Vitamin D 25 Hydroxy 25.3 ng/mL
[2024-04-17 10:28] LABS: Creatinine Urine 68.5 mg/dL
[2024-04-17 10:32] LABS: MALB Creatinine Ratio 18.4 mg/g (0-30); Microalbumin Urine Random 12.6 mg/L (0-16.7)
== END 2024-04-17 06:50 | disposition home or self-care (01) ==
PROVIDERS: PCP Family Medicine Adolescent Medicine; Visit Provider Nurse Practitioner Family
DX: E11.319 Type 2 diabetes mellitus with unspecified diabetic retinopathy without macular edema (principal); I10 Essential (primary) hypertension; E55.9 Vitamin D deficiency, unspecified; E78.5 Hyperlipidemia, unspecified
CPT/HCPCS: 36415; 80053; 80061; 82043; 82306; 82607; 84439; 84443

== ENCOUNTER 2024-11-04 15:15 | Outpatient (CLI) | payer MEDICARE, SELFPAY ==
--- NOTE | ~2024-11-04 | MM_ITS ---
EXAMINATION: MM screening farida BI w rhonda HISTORY: Screening mammogram, family history of breast cancer in her mother and daughter. TECHNIQUE: Craniocaudal and mediolateral oblique 3-D tomosynthesis images were obtained and synthetic 2-D images were generated. CAD analysis was submitted and interpreted. COMPARISON: 10/05/2023, 08/01/2022, 06/06/2021 BREAST PARENCHYMAL COMPOSITION:Not Dense. There are scattered areas of fibroglandular density. FINDINGS: Stable small intramammary lymph nodes. No suspicious mass, calcification, or architectural distortion are identified in either breast to suggest malignancy. There has been no suspicious interval change. IMPRESSION: No mammographic evidence of malignancy. Recommend routine screening mammography in one year. BI-RADS Category 2: Benign finding(s). Reviewed, dictated and finalized at location .
--- OUTSIDE RECORDS SUMMARY | 2024-11-04 15:45 | XMS_ITS | Encounter Summary ---
Author Organization [facility] Address [address] [place] [address] Care Team Providers Care Barrel Inspector Name Role Phone Mayur Maciel MD Primary Care Provider [phone]- [phone] Encounter Details Date Type Department Care Team (Late st Contact Info) Description 12/26/2020 [employer] [facility] Patient Accounts [address] [place] [address] [facility] Provider Financial assistance application Social History Tobacco Use Types Packs/Day Years Used Date Smoking Tobacco: Never Smokeless Tobacco: Never Alcohol Use Standard Drinks/Week Comments Yes 0 (1 standard drink = 0.6 oz pur e alcohol) once/week Comments No Sex and Gender Information Value Date Recorded Sex Assigned at Female 07/22/2024 9:52 AM CDT Legal Sex Female 10:00 AM CDT Gender [...] Care Team (Late st Contact Info) Description 07/19/2025 10:00 AM CDT Appointment [facility] [place] [address] Weston Emerson MD Three [facility]. [facility] [address] [place], [place] [id number] documented as of this encounter Goals Goal Patient Goal Type Associated Problems Recent Progress Patient-Stated? Author Family - family caregiver with be involved in care transitions and discharge planning General No Edna Sierra, PMP CERTIFIED PROJECT MANAGER documented as of this encounter Visit Diagnoses Not on filedocumented in this encounter Care Teams Barrel Inspector Relationship Specialty Start Date End Date Mayur Maciel MD [address] [facility] [address] [place] [address] PCP - General FAMILY PRACTICE 10/13/20 documented as of this encounter
--- OUTSIDE RECORDS SUMMARY | 2024-11-04 15:45 | XMS_ITS | Encounter Summary ---
Author Organization [facility] Address [address] [place] [address] Care Team Providers Care Workforce Planning Analyst Name Role Phone Mayur Maciel MD Primary Care Provider +1- [phone] Encounter Details Date Type Department Care Team (Late st Contact Info) Description 10/07/2022 Datto Message Enc [facility] THREE [facility], [facility] [address] [place], [place] [id number] Weston Emerson MD [facility]. [facility] [address] [place] [address] test result and follow up appointment if [...] Info) Description 07/19/2025 10:00 AM CDT Appointment [facility] [place] [address] Weston Emerson MD Three [facility]. [facility] [address] [place] [address] documented as of this encounter Goals Goal Patient Goal Type Associated Problems Recent Progress Patient-Stated? Author Family - family caregiver with be involved in care transitions and discharge planning General No Edna Sierra, CONSUMER SERVICES ADVISOR documented as of this encounter Visit Diagnoses Not on filedocumented in this encounter Care Teams Workforce Planning Analyst Relationship Specialty Start Date End Date Mayur Maciel MD 1 [facility] [address] [place] [address] PCP - General FAMILY PRACTICE 10/13/20 documented as of this encounter
--- OUTSIDE RECORDS SUMMARY | 2024-11-04 15:45 | XMS_ITS | Clinical Summary ---
Author Organization [facility] Address [address] [place] [address] Care Team Providers Care Middleware Engineer Name Role Phone Mayur Maciel MD Primary Care Provider +1- [phone] Allergies Active Allergy Reactions Criticality Noted Date Comments Eluxadoline Unknown 12/25/2021 Penicillins Unknown 10/13/2020 Clopidogrel Rash Low 10/13/2020 Pregabalin Unknown 12/25/2021 Medications gabapentin 600 MG tablet Take 600 mg by mouth daily. 1 Active lisinopril 20 MG tablet Take 20 [...] tablet (80 mg total) by mouth daily. 2 Active Glucagon 1 MG/0.2ML Solution Auto-injector once. 2 Active insulin lispro (HUMALOG) 100 UNIT/ML injection (VIAL) 3 Active RELION PEN NEEDLES 31G X 6 MM Misc USE 1 TO INJECT INSULIN ONCE DAILY 2 Active oxybutynin XL (DITROPAN-XL) 10 MG 24 hr tablet Take 1 tablet (10 mg total) by mouth daily. 2 Active pantoprazole EC (PROTONIX) 40 MG tablet Take 1 tablet (40 mg total) by mouth nightly at bedtime. 2 Active clobetasol (TEMOVATE) 0.05 % cream 4 Active JARDIANCE 10 MG tablet 4 Active traMADol (ULTRAM) 50 MG tablet TAKE 1 TO 2 TABLETS BY MOUTH 4 TIMES DAILY NEEDED FOR PAIN 4 Active Insulin Aspart FlexPen 100 UNIT/ML Solution Pen-injector 5 Active ketoconazole (NIZORAL) 2 % cream Apply topically daily. 5 Active pravastatin (PRAVACHOL) 20 MG tablet 5 Active DULoxetine (CYMBALTA) 60 MG capsule Take 1 capsule (60 mg total) by mouth. 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 ([facility]) 09/20/2022 Morbid (severe) obesity due to excess calories 0 09/20/2022 Neuropathy 09/20/2022 Type 2 diabetes mellitus wit hout complications ([facility]) 09/20/2022 Vitamin D deficiency 09/20/2022 Bilateral carotid artery stenosis 09/20/2022 Carotid occlusion, right 10/13/2020 TIA (transient ischemic attack) 10/13/2020 Irritable bowel syndrome with diarrhea 7 Diarrhea 01/10/2016 Nausea with vomiting 01/10/2016 Immunizations Immunization Administration Dates Next Due PFIZER COVID-19 (ORIGINAL [...] Sign Reading Time Taken Comments Blood Pressure 162/60 07/30/2024 9:52 AM CDT Pulse 85 07/30/2024 9:52 AM CDT Temperature 36.8 C (98.2 F) 10/20/2020 4:00 AM CDT Respiratory Rate 14 10/20/2020 4:00 AM CDT Oxygen Saturation 95% 10/20/2020 4:00 AM CDT Inhaled Oxygen Concentration - - Weight 106.7 kg (235 lb 3.2 oz) 07/30/2024 9:52 AM CDT Height 165.1 cm (5' 5) 07/30/2024 9:52 AM CDT Body Mass Index 39.14 07/30/2024 9:52 AM CDT Plan of Treatment Upcoming Encounters Date Type Department Care Team (Late st Contact Info) Description 07/19/2025 10:00 AM CDT Appointment [facility] Lab [address] [place], [place] [address] Weston Emerson MD Three [facility]. [place] [address] [place], [place] [id number] Health Maintenance Due Date Last Done Comments Colorectal Cancer Screening Colonoscopy (10 Years) 1957 Kidney Health Evaluation 1957 Diabetes: Retinopathy Eye Exam 1975 Hepatitis C 1975 Pneumococcal Vaccine: 50+ Years (1 of 2 - PCV) 01/02/1976 Mammogram Screening 1997 Zoster Vaccines (1 of 2) 2007 RSV Immunization or 60+ Years (1 - Risk 60-74 years 1-dose series) 2017 Hemoglobin A1C 04/15/2021 10/13/2020 ASCVD LDL 10/14/2021 10/14/2020 Lipid Panel 10/14/2021 10/14/2020 Annual Medicare Wellness Visit 2022 Dexa Scan (General) 2022 COVID-19 Vaccine (4 - 2023-2 5 season) 2023 12/23/2020, 03/26/2020, 03/05/2020 DTaP, Tdap and Td Vaccines ( 2 [...] and discharge planning General No Edna Sierra, TEACHING SUPERVISORpocket closer Devices Implanted Type Area Elementary Math Tutor Device Identifier Shelf Expiration Date Model / Serial / Lot Patch Cv Thk.36mm; Ulthn; Taper 6x.3in Knit; - [id number] Implanted:Qty : 1 on 10/18/2020 by Berto Castro MD at [facility] [employer] Graft Right: Carotid [employer] [id number] 04/17/2025 [id number] / [id number] / [id number] Description:Right carotid ar scot patch Procedures Procedure Name Priority Date/Time Associated Diagnosis Comments LIPID PANEL Routine 10/14/2020 4:40 AM CDT HEMOGLOBIN, GLYCOSYLATED Routine 10/13/2020 10:19 AM CDT from Last 3 Months or Most Recently Relevant to Health Maintenance Results * (ABNORMAL) LIPID PANEL (10/14/2020 4:40 AM CDT) CHOLESTEROL 133 <200 MG/DL 10/14/2020 5:23 AM CDT [facility] TRIGLYCERIDES 205(H) <150 MG/DL 10/14/2020 5:23 AM CDT [facility] HDL 28(L) >40.0 MG/DL 10/14/2020 5:23 AM CDT [facility] LDL (CALCULATED) 64 <100 MG/DL 10/14/2020 5:23 AM CDT [facility] NON HDL CHOLESTEROL 105 <130 MG/DL 10/14/2020 5:23 AM CDT [facility] CHOL/HDL RATIO 4.8(H) 0.0 - 4.5 10/14/2020 5:23 AM CDT [facility] VLDL CALCULATION 41 5 - 55 MG/DL 10/14/2020 5:23 AM CDT [facility] LIPID INTERPRETATION 10/14/2020 5:23 AM CDT [facility] Comment: [facility] CONCENSUS REPORT RECOMMENDATIONS: ADULT CHILD LOW RISK: CHOLESTEROL <200 <170 TRIGLYCERIDE <150 --- HDL >=60 --- LDL <100 <110 BORDERLINE: CHOLESTEROL 200-239 170-199 TRIGLYCERIDE 150-199 --- HDL 40-59 --- LDL 100-159 110-129 HIGH RISK: CHOLESTEROL >=240 >=200 TRIGLYCERIDE >=200 --- HDL <40 --- LDL >=160 >=130 10/14/2020 4:40 AM CDT Akila Pablo MD LABORATORY Final Result [facility] [address] [place] [address], * (ABNORMAL) HEMOGLOBIN, GLYCATED (10/13/2020 10:19 AM CDT) HGB A1C 9.2(H) <5.7 % 10/13/2020 1:59 PM CDT [facility] Comment: ADA GUIDELINES 2010 5.7 TO 6.4% INCREASED RISK OF DIABETES > OR = 6.5% CONSISTENT WITH DIABETES ESTIMATED AVG GLUCOSE 217 mg/dL 10/13/2020 1:59 PM CDT [facility] 10/13/2020 10:1 9 AM CDT Akila Pablo MD LABORATORY Final Result [facility] [address] [place] [address], from Last 3 Months or Most Recently Relevant to Health Maintenance Insurance [facility] Advance Directives Documents on File Type Date Recorded Patient Senior Program Analyst Expl anation Advance Directives and Living Will 10/21/2020 11:04 AM 10/03/2017 POA FOR HEALTH CARE * Full Code (Latest Code Status on File) Date Activated Date Inactivated Comments 10/13/2020 12:34 PM 10/20/2020 1:44 PM Care Teams Middleware Engineer Relationship Specialty Start Date End Date Mayur Maciel MD [address] [address] PCP - General FAMILY PRACTICE 10/13/20
== END 2024-11-04 15:16 | disposition home or self-care (01) ==
LOC: ANHFOHIMG 15:18
PROVIDERS: PCP Family Medicine Adolescent Medicine; Visit Provider Family Medicine Adolescent Medicine
DX: Z12.31 Encounter for screening mammogram for malignant neoplasm of breast (principal); Z80.3 Family history of malignant neoplasm of breast
CPT/HCPCS: 77063; 77067

== ENCOUNTER 2024-12-01 14:37 | Outpatient (CLI) | payer MEDICARE, SELFPAY ==
--- OUTSIDE RECORDS SUMMARY | 2010-01-08 19:00 | XMS_ITS | Continuity of Care Document ---
Author Organization [facility] Address [address] [place] [address] Phone Care Team Providers Care Layup Worker Name Role Phone [facility] Unavailable Unavail able Shivani Knight Unavailable Unavailable Procedures Procedure Date Vision Svcs Frames Purchases Progressive Lens, Plastic Tint Photochromatic, Plastic Scratch Resistant Coating Eye Exam & Treatment Refraction Eye Exam & Treatment Eye Exam, New Patient Advance Directives Directive Yes / No Effective Date File Name No Information Encounters Encounter Description Practice Location Reason(s) For Visit Diagnoses Date Provider Providers Copied on Encounter [facility], [address] [place], [place] [address] [address], [place], [place], [id number], [place] tel:[phone] [facility] No Information 0 [facility] . [address] [facility], [facility] [address], [place], [place], [id number], [place]. tel:[phone] Referring Provider: Jose Alejandro Green OD A, [address], [place], [address]. tel:[phone] sorto Provider: Shivani Knight, [address] [facility], [place], [address]. tel:[phone] [place] [facility], [address], [place], [place], [id number], [place] tel:[phone] [facility] No Information Feb-1 1-201 0 Green OD Jose Alejandro. [address] [facility] , [address], [place], [place], [facility], . tel:[phone] Referring Provider: Mayur Maciel MD, [address] [place] [address], [address]. tel:[phone] 4245 [facility], [address] [place] [address] [address], [place], [place], [id number], tel:[phone] [facility] No Information 5-200 9 Green OD Jose Alejandro. [address] [facility] , [address], [place], [place], [facility], [place]. tel:[phone] Referring Provider: Mayur Maciel MD, [address] [place] [address], [address]. tel:[phone] [facility], [address] [facility], [place], [place], [id number], tel:[phone] [facility] No Information 6-200 7 Green OD Jose Alejandro. [address] [facility] , [address], [place], [place], [facility], [place]. tel:[phone] Family History Family Member Type Diagnosis Age At Onset No Information Payers Payer name Insurance type Covered green party ID Authorberlina timadalyn(s) [employer] Plan CI [id number] Social History Type Description Quantity Date Captured Comments Sex Female Smoking Status No Information Chief Complaint And Reason For Visit No Information Reason For Referral Reason For Referral No Information History Of Present Illness Encounter Date Complaint History Of Prese nt Illness No Information Functional Status Date Functional Assessmen t No Information Instructions Date Instruction Additional Infor mation No Information Assessments Type Assessment Date No Information Patient Care Teams Name Effective Dates (start - stop) Status Members No Information
--- NOTE | ~2024-12-01 | XR_ITS ---
XR abdomen/kub 1V 12/01/2024 14:53 INDICATION: Renal stones TECHNIQUE: KUB COMPARISON: None FINDINGS: Bowel gas pattern is normal. There is no evidence of free air, mass, organomegaly, ascites or obstruction. There are 2 adjacent calcifications overlying the upper pole of the left kidney, suspicious for renal stones. The bones appear intact. IMPRESSION: 1.: Probable left nephrolithiasis at the upper pole. Reviewed, dictated and finalized at location O.
--- OUTSIDE RECORDS SUMMARY | 2024-12-01 16:11 | XMS_ITS | Encounter Summary ---
Author Organization [facility] Address [address] [place] [address] Care Team Providers Care Behavioral Health Worker Name Role Phone Mayur Maciel MD Primary Care Provider +1- [phone] Encounter Details Date Type Department Care Team (Late st Contact Info) Description 12/26/2020 ECS Tuning [facility] Patient Accounts [address] [place] [address] [facility] Provider Financial assistance application Social History [...] Info) Description 07/19/2025 10:00 AM CDT Appointment [facility] ONE [facility] [place] [address] Weston Emerson MD [address] [facility]. [facility] [address] [place], [place] [id number] documented as of this encounter Goals Goal Patient Goal Type Associated Problems Recent Progress Patient-Stated? Author Family - family caregiver with be involved in care transitions and discharge planning General No Edna Sierra, PROVIDER RELATIONS COORDINATOR documented as of this encounter Visit Diagnoses Not on filedocumented in this encounter Care Teams Behavioral Health Worker Relationship Specialty Start Date End Date Mayur Maciel MD 531 [facility] [address] [place] [address] PCP - General FAMILY PRACTICE 10/13/20 documented as of this encounter
--- OUTSIDE RECORDS SUMMARY | 2024-12-01 16:11 | XMS_ITS | Clinical Summary ---
Author Organization [facility] Address [address] [place] [address] Care Team Providers Care Senior Game Designer Name Role Phone Mayur Maciel MD Primary Care Provider +1- [phone] Allergies Active Allergy Reactions Criticality Noted Date [...] retinopathy associated with type 2 diabetes mellitus ([facility]) 09/20/2022 Morbid (severe) obesity due to excess calories 0 09/20/2022 Neuropathy 09/20/2022 Type 2 diabetes mellitus wit hout complications ([facility]) 09/20/2022 Vitamin D deficiency 09/20/2022 Bilateral [...] Info) Description 07/19/2025 10:00 AM CDT Appointment [facility] Lab [address] [place], [place] [address] Weston Emerson MD Three [facility]. [place] [address] [place], [place] [id number] Health Maintenance Due Date Last Done Comments [...] Scan (General) 2022 COVID-19 Vaccine (4 - 2024-2 6 season) 2024 12/23/2020, 03/26/2020, 03/05/2020 DTaP, Tdap and Td [...] and discharge planning General No Edna Sierra, MRI TECHhandbag operator Devices Implanted Type Area Funeral Home Manager Device Identifier Shelf Expiration Date Model / Serial / Lot Patch Cv Thk.36mm; Ulthn; Taper 6x.3in Knit; - [id number] Implanted:Qty : 1 on 10/18/2020 by Berto Castro MD at [facility] [employer] Graft Right: Carotid [employer] [id number] 04/17/2025 [id number] / [id number] / [id number] Description:Right carotid ar scot patch Procedures Procedure Name Priority Date/Time Associated Diagnosis Comments LIPID PANEL Routine 10/14/2020 4:40 AM CDT HEMOGLOBIN, GLYCOSYLATED Routine 10/13/2020 10:19 AM CDT from Last 3 Months or Most Recently Relevant to Health Maintenance Results * (ABNORMAL) LIPID PANEL (10/14/2020 4:40 AM CDT) CHOLESTEROL 133 <200 MG/DL 10/14/2020 5:[address] [facility] TRIGLYCERIDES 205(H) <150 MG/DL 10/14/2020 5:[address] [facility] HDL 28(L) >40.0 MG/DL 10/14/2020 5:[address] [facility] LDL (CALCULATED) 64 <100 MG/DL 10/14/2020 5:[address] [facility] NON HDL CHOLESTEROL 105 <130 MG/DL 10/14/2020 5:[address] [facility] CHOL/HDL RATIO 4.8(H) 0.0 - 4.5 10/14/2020 5:[address] [facility] VLDL CALCULATION 41 5 - 55 MG/DL 10/14/2020 5:[address] [facility] LIPID INTERPRETATION 10/14/2020 5:[address] [facility] Comment: [facility] CONCENSUS REPORT RECOMMENDATIONS: ADULT CHILD LOW RISK: CHOLESTEROL <200 <170 TRIGLYCERIDE <150 --- HDL >=60 --- LDL <100 <110 BORDERLINE: CHOLESTEROL 200-239 170-199 TRIGLYCERIDE 150-199 --- HDL 40-59 --- LDL 100-159 110-129 HIGH RISK: CHOLESTEROL >=240 >=200 TRIGLYCERIDE >=200 --- HDL <40 --- LDL >=160 >=130 10/14/2020 4:40 AM CDT Akila Pablo MD LABORATORY Final Result [facility] [address] [place] [address], * (ABNORMAL) HEMOGLOBIN, GLYCATED (10/13/2020 10:19 AM CDT) HGB A1C 9.2(H) <5.7 % 10/13/2020 1:[address] [facility] Comment: ADA GUIDELINES 2010 5.7 TO 6.4% INCREASED RISK OF DIABETES > OR = 6.5% CONSISTENT WITH DIABETES ESTIMATED AVG GLUCOSE 217 mg/dL 10/13/2020 1:59 PM CDT [facility] 10/13/2020 10:1 9 AM CDT Akila Pablo MD LABORATORY Final Result [facility] [address] [place] [address], from Last 3 Months or Most Recently Relevant to Health Maintenance Insurance [facility] Advance Directives Documents on File Type Date Recorded Patient Mill Stenciler Expl anation Advance Directives and Living Will 10/21/2020 11:04 AM 10/03/2017 POA FOR HEALTH CARE * Full Code (Latest Code Status on File) Date Activated Date Inactivated Comments 10/13/2020 12:34 PM 10/20/2020 1:44 PM Care Teams Senior Game Designer Relationship Specialty Start Date End Date Mayur Maciel MD [address] [address] PCP - General FAMILY PRACTICE 10/13/20
--- OUTSIDE RECORDS SUMMARY | 2024-12-01 16:11 | XMS_ITS | Encounter Summary ---
Author Organization [facility] Address [address] [place] [address] Care Team Providers Care Luggage Liner Name Role Phone Mayur Maciel MD Primary Care Provider +1- [phone] Encounter Details Date Type Department Care Team (Late st Contact Info) Description 10/07/2022 Nonpareil Message Enc [facility] THREE [facility], [place] [address] [place], [place] [phone] Weston Emerson MD [facility]. [place] [address] [place] [address] test result and follow up [...] Info) Description 07/19/2025 10:00 AM CDT Appointment [facility] [place] [address] Weston Emerson MD Three [facility]. [place] [address] [place] [address] documented as of this encounter Goals Goal Patient Goal Type Associated Problems Recent Progress Patient-Stated? Author Family - family caregiver with be involved in care transitions and discharge planning General No Edna Sierra, TOOL DESIGN ENGINEER documented as of this encounter Visit Diagnoses Not on filedocumented in this encounter Care Teams Luggage Liner Relationship Specialty Start Date End Date Mayur Maciel MD 1 [facility] [address] [place] [address] PCP - General FAMILY PRACTICE 10/13/20 documented as of this encounter
== END 2024-12-01 14:38 | disposition home or self-care (01) ==
PROVIDERS: PCP Family Medicine Adolescent Medicine; Visit Provider Nurse Practitioner Family
DX: R10.9 Unspecified abdominal pain (principal); Z87.442 Personal history of urinary calculi
CPT/HCPCS: 74018

== ENCOUNTER 2024-12-14 14:35 | Outpatient (CLI) | payer MEDICARE, SELFPAY ==
--- NOTE | ~2024-12-14 | CT_ITS ---
EXAMINATION: CT abd pelvis lumbar wo con DATE: 12/14/2024 14:53 INDICATION: Calculus of kidney. TECHNIQUE: Computed tomography (CT) of the abdomen and pelvis and lumbar spine was performed without intravenous contrast. Automated exposure control and iterative reconstruction technique were employed. The dose-length product was 1069.00 mGy-cm. COMPARISON: CT abdomen and pelvis 01/10/2022 FINDINGS: CT ABDOMEN AND PELVIS: The visualized portions of lung bases demonstrate minimal atelectasis. There is a 3 mm nodule at minor fissure, likely benign. No pleural effusion. The heart size is normal. No pericardial effusion. The liver, gallbladder, spleen, pancreas, adrenal glands are normal. There is cortical thinning of the kidneys. There is a 4 mm stone in left kidney. There are no dilated loops of bowel. The appendix is normal. There are no pathologically enlarged lymph nodes. There is no free intraperitoneal fluid. There is a benign bone island in right femoral head. CT LUMBAR SPINE: There is 12 degrees dextroscoliosis of lumbar spine. There is 3 mm anterolisthesis of L3 on L4. There are Schmorl's nodes at multiple levels. There is severely decreased disc height at L2-L3 and L3-L4, moderately decreased disc height at L4-L5, and mildly decreased disc height at L5-S1. The following disc levels are specifically discussed: L1-L2: The disc does not extend beyond the endplate margin. There is severe bilateral facet joint osteoarthritis. There is no neural foraminal stenosis. There is no central canal stenosis. L2-L3: The disc is bulging. There is severe right and moderate left facet joint osteoarthritis. There is mild right and moderate left neural foraminal stenosis. There is mild central canal stenosis. L3-L4: The disc is bulging. There is severe bilateral facet joint osteoarthritis. There is moderate bilateral neural foraminal stenosis. There is mild central canal stenosis. L4-L5: The disc is bulging. There is severe bilateral facet joint osteoarthritis. There is mild bilateral neural foraminal stenosis. There is mild central canal stenosis. L5-S1: The disc is bulging. There is severe bilateral facet joint osteoarthritis. There is mild bilateral neural foraminal stenosis. There is mild central canal stenosis. IMPRESSION: 1. 4 mm nonobstructing left kidney stone. 2. Severe lumbar spondylosis. 3. Lumbar dextroscoliosis. Reviewed, dictated and finalized at location E.
== END 2024-12-14 14:36 | disposition home or self-care (01) ==
LOC: MICIMG 14:36
PROVIDERS: PCP Family Medicine Adolescent Medicine; Visit Provider Nurse Practitioner Family
DX: N20.0 Calculus of kidney (principal); M47.816 Spondylosis without myelopathy or radiculopathy, lumbar region; M41.86 Other forms of scoliosis, lumbar region
CPT/HCPCS: 72131; 74176